=== PATIENT | male | born 1945 | race Caucasian/White ===

== ENCOUNTER 2018-08-03 09:45 | Outpatient (CLI) | payer OTHER, SELFPAY ==
[2018-08-03 11:36] LABS: CREATININE 1.11 mg/dL (0.70-1.30); Cholesterol 115 mg/dL (50-200); HDL Cholesterol 29 mg/dL (40-60); LDL CHOLESTEROL 63 mg/dL (<100); Triglyceride 167 mg/dL (30-150)
[2018-08-03 11:39] LABS: Hemoglobin A1C 7.1 % (4.5-6.2)
[2018-08-04 11:22] LABS: PSA, Screening <0.1 ng/ml (0-6.5)
== END 2018-08-03 10:05 ==
PROVIDERS: PCP Emergency Medicine; Visit Provider Emergency Medicine
DX: I10 Essential (primary) hypertension (principal); E78.5 Hyperlipidemia, unspecified; E11.9 Type 2 diabetes mellitus without complications; C61 Malignant neoplasm of prostate; R10.9 Unspecified abdominal pain
CPT/HCPCS: 36415; 80061; 83721; 84153; 82565; 83036

== ENCOUNTER → 2018-09-29 10:22 | Outpatient (BNVA) | payer OTHER, SELFPAY | PROVIDERS: PCP Emergency Medicine; Referring Provider Emergency Medicine; Visit Provider Physical Therapy Assistant | DX: R69 Illness, unspecified (principal) ==

== ENCOUNTER 2018-09-29 10:30 | Outpatient (CLI) | payer OTHER, SELFPAY | END 2018-09-29 10:50 | PROVIDERS: PCP Emergency Medicine; Visit Provider Physical Therapy Assistant | DX: L02.214 Cutaneous abscess of groin (principal) | CPT/HCPCS: 10060; 99213 ==

== ENCOUNTER 2018-10-07 12:47 | Outpatient (REF) | payer OTHER, SELFPAY | END 2018-10-07 13:07 | LOC: LBN 12:47 | PROVIDERS: PCP Emergency Medicine; Visit Provider Physical Therapy Assistant | DX: L02.214 Cutaneous abscess of groin (principal) | CPT/HCPCS: 87070; 87205 ==

== ENCOUNTER → 2018-10-13 10:08 | Outpatient (BNVA) | payer OTHER, SELFPAY | PROVIDERS: PCP Emergency Medicine; Referring Provider Emergency Medicine; Visit Provider Physical Therapy Assistant | DX: L02.214 Cutaneous abscess of groin (principal); Z48.89 Encounter for other specified surgical aftercare ==

== ENCOUNTER 2019-02-17 10:54 | Outpatient (CLI) | payer OTHER, SELFPAY | END 2019-02-17 11:14 | PROVIDERS: PCP Emergency Medicine; Visit Provider Emergency Medicine | DX: E11.9 Type 2 diabetes mellitus without complications (principal) | CPT/HCPCS: 36415; 83036 ==

== ENCOUNTER 2019-08-08 07:00 | Outpatient (CLI) | payer OTHER, SELFPAY ==
[2019-08-09 10:58] LABS: PSA, Diagnostic <0.1 ng/ml (0-6.5)
== END 2019-08-08 07:20 ==
PROVIDERS: PCP Emergency Medicine; Visit Provider Emergency Medicine
DX: E11.9 Type 2 diabetes mellitus without complications (principal); C61 Malignant neoplasm of prostate
CPT/HCPCS: 36415; 83036; 84153

== ENCOUNTER 2020-04-08 01:28 | Outpatient (CLI) | payer OTHER, SELFPAY ==
[2020-04-08 11:48] LABS: Anion Gap 10.7 mmol/L (3-11); BUN 21 mg/dL (7-18); CO2 26.3 mmol/L (21.0-32.0); CREATININE 1.31 mg/dL (0.70-1.30); Calcium 9.2 mg/dL (8.5-10.1); Chloride 103 mmol/L (98-107); Glucose 188 mg/dL (74-106); Potassium 4.2 mmol/L (3.5-5.1); Sodium 140 mmol/L (136-145)
== END 2020-04-08 01:48 ==
PROVIDERS: PCP Emergency Medicine; Visit Provider Emergency Medicine
DX: I10 Essential (primary) hypertension (principal); E11.9 Type 2 diabetes mellitus without complications
CPT/HCPCS: 36415; 80048; 83036

== ENCOUNTER 2020-06-28 02:28 | Outpatient (CLI) | payer OTHER, SELFPAY ==
[2020-06-28 10:06] LABS: HCT 42.1 % (40.0-50.0); MCH 28.9 pg (27.0-33.0); MCHC 33.3 % (32.0-36.0); MCV 86.8 fL (80-95); MPV 10.2 fL (8.0-11.0); Platelet Count 273 10^3/uL (130-400); RBC 4.85 10^6/uL (4.36-5.78); RDW 12.9 % (11.8-14.1); RDW-SD 40.6 fL; WBC 12.05 10^3/uL (4.4-10.8)
[2020-06-28 10:34] LABS: C-Reactive Protein 1.33 mg/dL (0.0-0.3)
[2020-06-28 13:18] LABS: ESR 22 mm/hr (1-20)
[2020-07-01 11:16] LABS: PSA, Diagnostic <0.1 ng/mL (0.0-6.5)
== END 2020-06-28 02:48 ==
PROVIDERS: PCP Emergency Medicine; Visit Provider Emergency Medicine
DX: R21 Rash and other nonspecific skin eruption (principal); C61 Malignant neoplasm of prostate
CPT/HCPCS: 36415; 85027; 85652; 84153; 86140

== ENCOUNTER 2020-07-10 17:05 | Outpatient (REF) | payer OTHER, SELFPAY ==
--- NOTE | 2020-07-10 16:00 | SKI_PTH ---
PATIENT: Rayshawn Martínez LOC: [facility] U#:[id number] AGE/SX: 75/M ROOM: RE07/10/[address]: Alcides Amezquita DO : 1945 BED: DIS: 07/10/2020 SPEC #: [id number] RECD: 07/11/20 12:26 STATUS: ANTON REStephany #: [id number] KWAKU: 07/10/20 16:[address]: Alcides Amezquita DEPT: Surgical Specimen RECD BY: Marisol Ayon Tissues: 1 - SKIN BIOPSY(SHAVE/PUNCH) Procedures: SKIN LEVEL 4 Comments: [id number]
[2020-07-10 22:10] LABS: Abs Immature Grans 0.15 10^3/uL (0.0-0.06); Absolute Basophil Count 0.11 10^3/uL (0.0-0.2); Absolute Eosinophil Count 0.51 10^3/uL (0.0-0.7); Absolute Lymphocyte Count 2.55 10^3/uL (1.2-3.4); Absolute Monocyte Count 0.91 10^3/uL (0.1-0.8); Absolute Neutrophil Count 6.27 10^3/uL (1.2-6.7); Bilirubin Negative (Negative); Blood Negative (Negative); Clarity Clear (Clear); Eosinophils % 4.9; Glucose Negative (Negative); HCT 43.2 % (40.0-50.0); HGB 14.6 g/dL (13.5-17.5); Immature Grans % 1.4; Ketones Negative (Negative); Leukocyte Esterase Negative (Negative); Lymphocytes % 24.3; MCH 28.7 pg (27.0-33.0); MCHC 33.8 % (32.0-36.0); MPV 10.4 fL (8.0-11.0); Monocytes % 8.7; Neutrophils % 59.7; Nitrite Negative (Negative); Nucleated RBC 0 %; Platelet Count 275 10^3/uL (130-400); RBC 5.08 10^6/uL (4.36-5.78); RDW 12.7 % (11.8-14.1); Urobilinogen 0.2 EU/dL (Up TO 0.2); pH 7.5 (5-8)
[2020-07-10 22:20] LABS: ALT 44 U/L (16-63); AST 21 U/L (15-37); Albumin 4.3 g/dL (3.4-5.0); Alkaline Phosphatase 84 U/L (46-116); Anion Gap 8.4 mmol/L (3-11); BUN 14 mg/dL (7-18); Bilirubin, Total 0.4 mg/dL (0.2-1.0); C-Reactive Protein 1.59 mg/dL (0.0-0.3); CO2 29.6 mmol/L (21.0-32.0); CREATININE 1.15 mg/dL (0.70-1.30); Calcium 9.9 mg/dL (8.5-10.1); Chloride 99 mmol/L (98-107); Glucose 214 mg/dL (74-106); Potassium 4.1 mmol/L (3.5-5.1); Sodium 137 mmol/L (136-145); Total Protein 7.9 g/dL (6.4-8.2)
== END 2020-07-10 17:25 ==
LOC: LBN 17:05
PROVIDERS: PCP Emergency Medicine; Visit Provider Emergency Medicine
DX: E11.9 Type 2 diabetes mellitus without complications (principal); R30.0 Dysuria; R21 Rash and other nonspecific skin eruption; L30.8 Other specified dermatitis; L98.6 Other infiltrative disorders of the skin and subcutaneous tissue
CPT/HCPCS: 80053; 81003; 83036; 85025; 86140; 88305

== ENCOUNTER → 2020-08-01 13:49 | Outpatient (BNVA) | payer OTHER, SELFPAY | PROVIDERS: PCP Emergency Medicine; Referring Provider Emergency Medicine; Visit Provider Psychiatry & Neurology Neurology | DX: G20 Parkinson's disease (principal); R41.3 Other amnesia; M54.5 Low back pain; E11.40 Type 2 diabetes mellitus with diabetic neuropathy, unspecified; Z79.84 Long term (current) use of oral hypoglycemic drugs; I10 Essential (primary) hypertension | CPT/HCPCS: 99205; 99215 ==

== ENCOUNTER → 2020-08-26 09:50 | Outpatient (BNVA) | payer OTHER, SELFPAY | PROVIDERS: PCP Emergency Medicine; Referring Provider Emergency Medicine; Visit Provider Psychiatry & Neurology Neurology | DX: G20 Parkinson's disease (principal); R41.3 Other amnesia; I10 Essential (primary) hypertension | CPT/HCPCS: 99213 ==

== ENCOUNTER → 2020-09-30 07:38 | Outpatient (BNVA) | payer OTHER, SELFPAY | PROVIDERS: PCP Emergency Medicine; Referring Provider Emergency Medicine; Visit Provider Psychiatry & Neurology Neurology | DX: R41.3 Other amnesia (principal); G20 Parkinson's disease; I10 Essential (primary) hypertension; E11.9 Type 2 diabetes mellitus without complications; Z79.84 Long term (current) use of oral hypoglycemic drugs | CPT/HCPCS: 99213; 99441 ==

== ENCOUNTER 2020-11-13 11:04 | Outpatient (REF) | payer OTHER, SELFPAY ==
[2020-11-13 14:11] LABS: Abs Immature Grans 0.05 10^3/uL (0.0-0.06); Absolute Basophil Count 0.09 10^3/uL (0.0-0.2); Absolute Eosinophil Count 0.49 10^3/uL (0.0-0.7); Absolute Lymphocyte Count 2.21 10^3/uL (1.2-3.4); Absolute Monocyte Count 0.71 10^3/uL (0.1-0.8); Absolute Neutrophil Count 5.33 10^3/uL (1.2-6.7); Eosinophils % 5.5; HGB 14.7 g/dL (13.5-17.5); Immature Grans % 0.6; Lymphocytes % 24.9; MCH 28.7 pg (27.0-33.0); MCHC 33.4 % (32.0-36.0); MCV 85.8 fL (80-95); MPV 10.7 fL (8.0-11.0); Nucleated RBC 0 %; Platelet Count 274 10^3/uL (130-400); RBC 5.13 10^6/uL (4.36-5.78); RDW 12.9 % (11.8-14.1); RDW-SD 40.3 fL; WBC 8.88 10^3/uL (4.4-10.8)
[2020-11-13 14:26] LABS: C-Reactive Protein 1.28 mg/dL (0.0-0.3)
[2020-11-13 14:58] LABS: Hemoglobin A1C 7.4 % (<5.7)
[2020-11-13 15:12] LABS: ESR 16 mm/hr (1-20)
== END 2020-11-13 11:24 ==
LOC: LBN 11:04
PROVIDERS: PCP Emergency Medicine; Visit Provider Emergency Medicine
DX: E11.9 Type 2 diabetes mellitus without complications (principal); R21 Rash and other nonspecific skin eruption
CPT/HCPCS: 85652; 83036; 85025; 86140

== ENCOUNTER 2021-03-14 14:52 | Outpatient (REF) | payer OTHER, SELFPAY ==
[2021-03-14 14:05] LABS: Hemoglobin A1C 7.7 % (<5.7)
[2021-03-14 14:22] LABS: Anion Gap 12.9 mmol/L (3-11); BUN 19 mg/dL (7-18); CO2 26.1 mmol/L (21.0-32.0); CREATININE 1.2 mg/dL (0.70-1.30); Calcium 9.5 mg/dL (8.5-10.1); Calculated LDL 46 mg/dL (<100); Chloride 102 mmol/L (98-107); Cholesterol 115 mg/dL (<200); Estimated GFR 58.71 (mL/min/1.73m2); Glucose 266 mg/dL (74-106); HDL Cholesterol 31 mg/dL (40-60); Potassium 4.1 mmol/L (3.5-5.1); Sodium 141 mmol/L (136-145); Triglyceride 192 mg/dL (<150)
[2021-03-14 15:06] LABS: COMMENT (LAB VIEW ONLY) 103.29 mg/dL; Microalb ug/mg Crea 14.2 ug/mg Cr
== END 2021-03-14 14:53 | disposition home or self-care (01) ==
LOC: LBN 14:52
PROVIDERS: PCP Emergency Medicine; Visit Provider Emergency Medicine
DX: I10 Essential (primary) hypertension (principal); E11.9 Type 2 diabetes mellitus without complications; E78.5 Hyperlipidemia, unspecified
CPT/HCPCS: 80048; 80061; 82043; 82570; 83036

== ENCOUNTER → 2021-03-31 12:16 | Outpatient (BNVA) | payer OTHER, SELFPAY | PROVIDERS: PCP Emergency Medicine; Referring Provider Emergency Medicine; Visit Provider Psychiatry & Neurology Neurology | DX: G20 Parkinson's disease (principal); R41.3 Other amnesia | CPT/HCPCS: 99213 ==

== ENCOUNTER 2021-09-04 10:48 | Outpatient (CLI) | payer MEDICARE, SELFPAY ==
[2021-09-04 13:02] LABS: COMMENT (LAB VIEW ONLY) 156.31 mg/dL; Microalb ug/mg Crea 10.9 ug/mg Cr
[2021-09-04 13:08] LABS: Anion Gap 11.8 mmol/L (3-11); BUN 23 mg/dL (7-18); CO2 27.2 mmol/L (21.0-32.0); CREATININE 1.1 mg/dL (0.70-1.30); Calcium 9.5 mg/dL (8.5-10.1); Calculated LDL 46 mg/dL (<100); Chloride 102 mmol/L (98-107); Cholesterol 116 mg/dL (<200); Glucose 202 mg/dL (74-106); HDL Cholesterol 33 mg/dL (40-60); Potassium 4.6 mmol/L (3.5-5.1); Sodium 141 mmol/L (136-145); Triglyceride 187 mg/dL (<150)
[2021-09-04 13:24] LABS: C-Reactive Protein 0.25 mg/dL (0.0-0.3)
[2021-09-04 13:47] LABS: Hemoglobin A1C 7.7 % (<5.7)
[2021-09-04 22:31] LABS: PSA, Diagnostic <0.1 ng/mL (0.0-6.5)
== END 2021-09-04 10:49 | disposition home or self-care (01) ==
LOC: LOS 10:48
PROVIDERS: PCP Emergency Medicine; Visit Provider Emergency Medicine
DX: E11.9 Type 2 diabetes mellitus without complications; I10 Essential (primary) hypertension; R21 Rash and other nonspecific skin eruption; C61 Malignant neoplasm of prostate
CPT/HCPCS: 36415; 80048; 80061; 82043; 82570; 83036; 84153; 86140

== ENCOUNTER → 2021-09-25 13:21 | Outpatient (BNVA) | payer MEDICARE, SELFPAY | PROVIDERS: PCP Emergency Medicine; Referring Provider Emergency Medicine; Visit Provider Surgery | DX: K40.90 Unilateral inguinal hernia, without obstruction or gangrene, not specified as recurrent (principal); I10 Essential (primary) hypertension; E11.9 Type 2 diabetes mellitus without complications; G20 Parkinson's disease; Z87.891 Personal history of nicotine dependence | CPT/HCPCS: 99214; 99243 ==

== ENCOUNTER → 2021-09-29 11:22 | Outpatient (BNVA) | payer MEDICARE, SELFPAY | PROVIDERS: PCP Emergency Medicine; Visit Provider Psychiatry & Neurology Neurology | DX: R41.3 Other amnesia (principal); G20 Parkinson's disease; R26.89 Other abnormalities of gait and mobility | CPT/HCPCS: 99214 ==

== ENCOUNTER 2021-11-13 01:13 | Outpatient (CLI) | payer MEDICARE, SELFPAY ==
--- NOTE | 2021-11-13 14:10 | DI.US_ITS ---
APPROVED REPORT EXAM: Comprehensive 2D, Doppler, and color-flow Echocardiogram Patient Location: Out-Patient Jailkeeper: Geno Taylor RDCS (AE) Indications: HTN, Preop Left inguinal hernia Other Information Study Quality: Adequate Conclusion Normal left ventricular wall thickness and chamber size. Estimated ejection fraction is 60 to 65%. Wall motion is normal Normal right ventricular size and systolic function Both atria are normal in size There is no structural or hemodynamically significant valvular disease Wall motion Left Ventricle The left ventricle is normal size. The left ventricular systolic function is normal. The left ventric ular ejection fraction is within the normal range. There is normal left ventricular wall thickness. T here is normal LV segmental wall motion. There is no ventricular septal defect visualized. LVEF is 60 -65%. Right Ventricle The right ventricle is normal size. The right ventricular systolic function is normal. Atria The left atrium size is normal. The right atrium size is normal. The interatrial septum is intact wit h no evidence for an atrial septal defect. Aortic Valve The aortic valve is normal in structure. Aortic valve is trileaflet. There is no aortic valvular sten osis. No aortic regurgitation is present. Mitral Valve The mitral valve is normal in structure. No evidence of mitral valve stenosis. Trace mitral regurgita tion. Tricuspid Valve The tricuspid valve is normal in structure. There is no tricuspid valve stenosis. Mild tricuspid regu rgitation. Pulmonic Valve The pulmonary valve is normal in structure. There is no pulmonic valvular stenosis. There is no pulmo ben valvular regurgitation. Great Vessels The aortic root is normal in size. The ascending aorta is normal in size. Aortic arch is normal in ca liber. IVC is normal in size and collapses >50% with inspiration. Pericardium There is no pericardial effusion. 2D Dimensions IVSD d PLAX 0.94 cm M: 0.6-1.2 LV Vol A2C d MOD 72.8 mL LVPW d PLAX 0.95 cm M: 0.6 - 1.2 LV Vol A4C d MOD 88.5 mL LVID d PLAX 4.02 cm M: 4.2 - 5.8 LA vol/ BSA A2C s A-L 21.6 mL/m2 LVDs 2.85 cm M: 2.5 - 4.0 LA vol/ BSA A4C s A-L 11.6 mL/m2 Ao Root d 3.19 cm M: 3.1 - 3.7 LA Vol/ BSA Biplane s A-L 17.4 mL/m2 RA Area A4C 11.48 cm2 LA Area A4C s MOD 9.47 cm2 RA Vol/ BSA A4C s A-L 13.6 mL/m2 LA Area A2C s MOD 14.16 cm2 Ao Asc Diam d 3.42 cm M: 2.6 - 3.4 LV EF A4C MOD 55.2 % LV EF Teichholz 55.4 % LV EF A2C MOD 55.4 % LVEF (Bautista's) 55.36 % M: 52 - 72 LV EF Biplane MOD 55.4 % LV Volume 63.24 mL M: 62 - 150 SV 44.83 mL LV Volume Index 35.52 mL/m2 M: 34 - 74 SV Index 25.20 mL/m2 LV Vol Biplane MOD 81.0 mL FS 28.40 % M-Mode TAPSE 1.72 cm (M/F) >1.7 LV Diastology MV E' medial 0.080 (>0.07 m/s) E/A Ratio 0.6 LV E/e MED 6.90 (<14) MV E Vmax 0.55 (0.4-1.3 m/s) MV E' lateral 0.078 (>0.1 m/s) MV A Vmax 1.00 (0.4-1.3 m/s) LV E/e LAT 7.05 (<14) MV E/A Ratio 0.54 MV E/E' medial 6.94 MV E/E' lateral 7.08 Aortic Valve LVOT Area 3.01 cm2 AoV Area Vmax 2.40 cm2 LVOT Vmax 1.02 m/s AoV Area/ BSA (Vmax) 1.35 cm2/m2 LVOT Mean Pb. 0.64 m/s LUCY Mean Pb. 2.28 cm2 LVOT Peak Grad 4.2 mmHg LUCY Mean Pb. Index 1.28 cm2/m2 LVOT Mean Grad 2.0 mmHg LVOT VTI 0.179 m LVOT Diam s 1.95 cm AoV Vmax 1.29 m/s Velocity Ratio 0.79 AoV Mean Pb. 0.85 m/s AoV Peak Grad 6.6 mmHg LVOT SV 53.98 mL AoV Mean Grad 3.4 mmHg AoV VTI 0.165 m AoV Area VTI 3.28 cm2 AoV Area/ BSA (VTI) 1.84 cm/m2 Mitral Valve MV DT 303 (160-240 msec) MV PHT 88 msec MV Area PHT 2.51 cm2 MV VTI 0.206 m MV Area VTI 2.62 (4.0-6.0 cm2) Pulmonary Valve PV Vmax 1.15 (0.5-1.5 m/s) RVOT Peak Gr. 2.28 mmHg PV Peak Grad 5.3 mmHg RVOT Mean Gr. 1.10 mmHg PV Mean Grad 2.6 mmHg RVOT VTI 0.117 m PV VTI 0.160 m RVOT Vmax 0.75 m/s Tricuspid Valve TR Peak Grad 27.1 mmHg TR Vmax 2.61 m/s RA Pressure 3.00 mmHg RVSP (TR) 30.2 mmHg
== END 2021-11-13 01:33 ==
PROVIDERS: PCP Family Medicine; Visit Provider Surgery
DX: K40.90 Unilateral inguinal hernia, without obstruction or gangrene, not specified as recurrent; Z01.810 Encounter for preprocedural cardiovascular examination
CPT/HCPCS: 93306

== ENCOUNTER → 2021-11-17 09:58 | Outpatient (BNVA) | payer MEDICARE, SELFPAY | PROVIDERS: PCP Family Medicine; Visit Provider Surgery | DX: K46.9 Unspecified abdominal hernia without obstruction or gangrene (principal) | CPT/HCPCS: 99212; 99213 ==

== ENCOUNTER → 2021-12-29 10:27 | Outpatient (BNVA) | payer MEDICARE, SELFPAY | PROVIDERS: PCP Family Medicine; Visit Provider Psychiatry & Neurology Neurology | DX: R41.3 Other amnesia (principal); F43.9 Reaction to severe stress, unspecified; Z63.6 Dependent relative needing care at home; G20 Parkinson's disease | CPT/HCPCS: 99214 ==

== ENCOUNTER 2022-01-07 02:24 | Outpatient (CLI) | payer MEDICARE, SELFPAY ==
[2022-01-07 13:34] LABS: HCT 43.1 % (40.0-50.0); HGB 14.1 g/dL (13.5-17.5); MCH 28.7 pg (27.0-33.0); MCHC 32.7 % (32.0-36.0); MCV 87.8 fL (80-95); MPV 9.7 fL (8.0-11.0); Platelet Count 297 10^3/uL (130-400); RBC 4.91 10^6/uL (4.36-5.78); RDW 12.9 % (11.8-14.1); RDW-SD 41.4 fL; WBC 9.95 10^3/uL (4.4-10.8)
[2022-01-07 13:46] LABS: Hemoglobin A1C 7.1 % (<5.7)
[2022-01-07 14:17] LABS: Anion Gap 7.3 mmol/L (3-11); BUN 17 mg/dL (7-18); CO2 29.7 mmol/L (21.0-32.0); CREATININE 0.9 mg/dL (0.70-1.30); Calcium 9.7 mg/dL (8.5-10.1); Chloride 102 mmol/L (98-107); Glucose 141 mg/dL (74-106); Potassium 4.3 mmol/L (3.5-5.1); Sodium 139 mmol/L (136-145)
[2022-01-07 14:21] LABS: Iron 48 ug/dL (65-175); Total Iron Binding Capacity 295 ug/dL (250-450); Transferrin Sat 16 % (20-55)
[2022-01-07 14:48] LABS: Ferritin 63 ng/mL (26-388); TSH (W/Ref FT4) 1.21 uIU/mL (0.36-3.74); Vitamin B12 211 pg/mL (193-986)
[2022-01-10 15:59] LABS: Thiamine (Vitamin B1), WB 127 nmol/L (70-180)
== END 2022-01-07 02:25 | disposition home or self-care (01) ==
LOC: LBO 02:24
PROVIDERS: PCP Family Medicine; Visit Provider Psychiatry & Neurology Neurology
DX: G31.84 Mild cognitive impairment of uncertain or unknown etiology (principal); G62.9 Polyneuropathy, unspecified; E11.9 Type 2 diabetes mellitus without complications; R53.83 Other fatigue
CPT/HCPCS: 36415; 80048; 85027; 82607; 82728; 83036; 83540; 83550; 84425; 84443

== ENCOUNTER → 2022-02-10 10:33 | Outpatient (BNVA) | payer MEDICARE, SELFPAY | PROVIDERS: PCP Family Medicine; Visit Provider Psychiatry & Neurology Neurology | DX: R41.3 Other amnesia (principal); F43.9 Reaction to severe stress, unspecified; I10 Essential (primary) hypertension; E11.42 Type 2 diabetes mellitus with diabetic polyneuropathy; G20 Parkinson's disease | CPT/HCPCS: 99215 ==

== ENCOUNTER → 2022-03-17 11:22 | Outpatient (BNVA) | payer MEDICARE, SELFPAY | PROVIDERS: PCP Family Medicine; Referring Provider Family Medicine; Visit Provider Psychiatry & Neurology Neurology | DX: G20 Parkinson's disease (principal); R41.3 Other amnesia | CPT/HCPCS: 99214 ==

== ENCOUNTER → 2022-06-15 11:20 | Outpatient (BNVA) | payer MEDICARE, SELFPAY | PROVIDERS: PCP Family Medicine; Referring Provider Family Medicine; Visit Provider Psychiatry & Neurology Neurology | DX: G20 Parkinson's disease (principal); R41.3 Other amnesia | CPT/HCPCS: 99213 ==

== ENCOUNTER 2022-09-09 13:50 | Outpatient (REF) | payer MEDICARE, SELFPAY ==
[2022-09-09 13:32] LABS: Microalb ug/mg Crea 12.7 ug/mg Cr
== END 2022-09-09 13:51 | disposition home or self-care (01) ==
LOC: LBN 13:50
PROVIDERS: PCP Family Medicine; Visit Provider Family Medicine
DX: I10 Essential (primary) hypertension (principal); E78.5 Hyperlipidemia, unspecified; E11.40 Type 2 diabetes mellitus with diabetic neuropathy, unspecified
CPT/HCPCS: 82043; 82570

== ENCOUNTER → 2022-09-14 09:59 | Outpatient (BNVA) | payer MEDICARE, SELFPAY | PROVIDERS: PCP Family Medicine; Referring Provider Family Medicine; Visit Provider Psychiatry & Neurology Neurology | DX: G20 Parkinson's disease (principal); K59.00 Constipation, unspecified; Z63.6 Dependent relative needing care at home; G31.84 Mild cognitive impairment of uncertain or unknown etiology | CPT/HCPCS: 99214 ==

== ENCOUNTER → 2022-12-23 13:14 | Outpatient (BNVA) | payer MEDICARE, SELFPAY | PROVIDERS: PCP Family Medicine; Visit Provider Psychiatry & Neurology Neurology | DX: M54.50 Low back pain, unspecified (principal); K59.00 Constipation, unspecified; Z63.6 Dependent relative needing care at home; I10 Essential (primary) hypertension; E11.42 Type 2 diabetes mellitus with diabetic polyneuropathy; G20 Parkinson's disease; R41.3 Other amnesia | CPT/HCPCS: 99214 ==

== ENCOUNTER 2023-01-13 01:03 | Outpatient (CLI) | payer MEDICARE, SELFPAY ==
--- NOTE | 2023-01-13 06:45 | DI.MRI_ITS ---
Exam(s) MR LUMBAR SPINE WO EXAM: MR LUMBAR SPINE WO CLINICAL HISTORY: 2 mos back pain, no improvement with PT,m54.5. TECHNIQUE: Multiplanar multisequence MRI of the Lumbar spine was performed. COMPARISON: CR LUMBAR SPINE COMPLETE from 09/20/2009 CT ABD PELVIS WITH CONTRAST from 08/07/2016 FINDINGS: Bones: The last intervertebral disc space is designated the L5/S1 level for the numbering purpose of this examination. Endplate osteophytes are seen throughout the lumbar spine. There is a right conv ex curvature of the thoracolumbar spine. There are mild degenerative endplate signal changes at L5-S 1. Cord: The conus tip ends at the T12-L1 level. It is of normal size and signal intensity. T12-L1: No disc herniations or bulges are present. No central spinal canal or neural foraminal stenos is. L1-2: No disc herniations or bulges are present. No central spinal canal or right neural foraminal st enosis. There are prominent osteophytes on the left causing mild left neural foraminal stenosis. L2-3: No disc herniations or bulges are present. No central spinal canal or right neural foraminal st enosis. There are prominent osteophytes on the left side causing mild left neural foraminal narrowin g. L3-4: There is a mild diffuse disc bulge. There are degenerative changes of the facets. There is mi ld narrowing of the central spinal canal. There is mild right neural foraminal stenosis and moderate left neural foraminal stenosis. L4-5: There is a diffuse disc bulge and prominent osteophytes, right greater than left. Facet arthro josue is seen. No significant central spinal canal stenosis is present. There is marked right neura l foraminal stenosis and mild left neural foraminal stenosis. L5-S1: No disc herniations or bulges are present. There is marked right neural foraminal stenosis. N o significant central spinal canal or left neural foraminal stenosis.There are degenerative changes o f the facets. There prominent osteophyte seen on the right side. Soft tissues: The visualized SI joints and sacrum are well maintained. The paraspinal soft tissues ar e unremarkable. IMPRESSION: 1. Multilevel degenerative changes throughout the lumbar spine as described above. 2. Findings predominantly result in bilateral neural foraminal stenosis as described above. The find ings are most marked on the right at L4-5 and L5-S1. DATA REPOSITORY:
== END 2023-01-13 01:23 ==
PROVIDERS: PCP Family Medicine; Visit Provider Family Medicine
DX: M54.59 Other low back pain (principal); M51.36 Other intervertebral disc degeneration, lumbar region; M47.817 Spondylosis without myelopathy or radiculopathy, lumbosacral region; M99.53 Intervertebral disc stenosis of neural canal of lumbar region
CPT/HCPCS: 72148

== ENCOUNTER → 2023-03-24 12:51 | Outpatient (BNVA) | payer MEDICARE, SELFPAY | PROVIDERS: PCP Family Medicine; Referring Provider Family Medicine; Visit Provider Psychiatry & Neurology Neurology | DX: G20 Parkinson's disease; K59.00 Constipation, unspecified; Z63.6 Dependent relative needing care at home; G31.84 Mild cognitive impairment of uncertain or unknown etiology; I10 Essential (primary) hypertension; E11.9 Type 2 diabetes mellitus without complications | CPT/HCPCS: 99214 ==

== ENCOUNTER 2023-07-07 09:24 | Outpatient (CLI) | payer MEDICARE, SELFPAY ==
--- NOTE | 2023-07-07 06:00 | DI.RAD_ITS ---
Exam(s) XR PAIN CLINIC LUMBAR SP 2V EXAM: XR PAIN CLINIC LUMBAR SP 2V CLINICAL HISTORY: Dx: Lumbar Spondylosis TECHNIQUE: 2D and realtime digital imaging was performed. CONTRAST MATERIAL: Refer to procedure report. COMPARISON: No exams were available for comparison FINDINGS: Fluoroscopy was provided for Dr. Herrera during the performance of a lumbar facet injection. Please re shaneka to the procedure report for complete details. Ka,r=8.47 mGy IMPRESSION:
[2023-07-07 09:26] VITALS: BP 125/81; PULSE 101; RESP 20; TEMP 36.6; O2SAT 97
[2023-07-07] MEDS: Omnipaque 240 MG/ML 50 ML BTL IJ (10:04)
[2023-07-07] MEDS: Bupivacaine 0.5% Pres-Free 10 ML VIAL IJ (10:05)
[2023-07-07 10:12] VITALS: BP 132/75; PULSE 97; RESP 20; O2SAT 99
--- NOTE | 2023-07-07 14:28 | PDOC.PAIN_ITS ---
Date of service: 07/07/23 Time of Service: 14:28 Pain Managment Procedure Note Procedure Note Procedure Note: PROCEDURE NOTE Right Lumbar Medial Branch Blocks Date of Service: July 07, 2023 Patient: Rayshawn Martínez Provider: Dung Herrera DO, MPH Rayshawn Martínez has been referred to the [facility] for lumbar medial branch blocks. 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 His symptoms are the same today as they were at that time. Jg was interviewed and the medical records were reviewed. There were no medical, pharmacologic, radiographic or other structural contraindications to attempting fluoroscopically guided local anesthetic lumbar medial branch blocks. Risks and potential side effects were discussed. I also discussed the potential benefit(s) of the procedure with Rayshawn, and voiced concerns were addressed. After Rayshawn was completely informed about the procedure, the printed consent form was signed. A standard time-out procedure was performed. Rayshawn was placed in the prone position on the fluoroscopy table. Automated blood pressure cuff and pulse oximeter were applied. The skin entry points for approaching the anatomic target points of the segmental medial branches of right L3,L4,L5 were identified with fluoroscopy and marked. The skin at the target site area was thoroughly prepared with Chlorhexadine. The skin was then draped. Next, a 25 gauge 3.5 spinal needle was placed under fluoroscopic guidance down on to the target point (the articular pillar) for each respective segmental medial branch. Position was confirmed in A/P and lateral views. Aspiration revealed no blood or clear fluid. Next, 0.25ml of omnipaque 240 was injected at each level. No contrast following a vascular or neural pattern was visualized under continuous fluoroscopy. Next, 0.25 ml of preservative-free 0.5% bupivicaine was injected at each level. There was no unusual discomfort expressed by Rayshawn. The needles were withdrawn without difficulty. (49 mls of Omnipaque was wasted) Rayshawn was observed and was without hemodynamic, neurologic, or allergic reactions.? Fluoroscopic images were digitally archived. Provacative testing using the Modified Guadarrama's facet loading test- Right Side Directly before the block VAS (0-10) = 7/10 Five minutes after the block VAS (0-10) = 5/10 Percentage relief obtained with this diagnostic block 40% Any improved physical functioning directly after the blocks? Able to walk much easier. Follow up plans and appointments were discussed with Rayshawn. Rayshawn was instru cted to keep careful note of how the usual pain was modified by these injections. Specifically, to keep a pain diary for the next 4 hours using a numeric pain scale of 0-10 and report these results. Post procedure instruction was given as documented in the nursing documentation and having met discharge criteria, the patient was [facility]. Based on the medial branches blocked today, if they patient has adequate relief and we are able to proceed to radiofrequency ablation, the treatment should result in the denervation of the right L4-L5 and L5-S1 facet joints. We would expect to denervate a total of 2 facets during the radiofrequency ablation. COMMENTS: No apparent complications. Post-procedure pain: VAS= 5/10 Rayshawn will call back with 0-4 hour post-procedure pain scores. I personally performed the entire procedure. DUNG HERRERA DO, MPH ABPM&R-subspecialty board certification in Pain Medicine [facility] [facility]
== END 2023-07-07 09:25 | disposition home or self-care (01) ==
LOC: PC 09:24
PROVIDERS: PCP Family Medicine; Visit Provider Preventive Medicine Occupational Medicine
DX: M54.50 Low back pain, unspecified (principal); M47.816 Spondylosis without myelopathy or radiculopathy, lumbar region
CPT/HCPCS: 64493; 64494; 72100; Q9967

== ENCOUNTER → 2023-07-28 10:47 | Outpatient (BNVA) | payer MEDICARE, SELFPAY | PROVIDERS: PCP Family Medicine; Referring Provider Family Medicine; Visit Provider Psychiatry & Neurology Neurology | DX: K59.00 Constipation, unspecified (principal); Z63.6 Dependent relative needing care at home; G31.84 Mild cognitive impairment of uncertain or unknown etiology; I10 Essential (primary) hypertension; E11.9 Type 2 diabetes mellitus without complications; G20.A1 Parkinson's disease without dyskinesia, without mention of fluctuations | CPT/HCPCS: 99214 ==

== ENCOUNTER 2023-08-18 14:46 | Outpatient (CLI) | payer MEDICARE, SELFPAY ==
--- NOTE | 2023-08-18 06:00 | DI.RAD_ITS ---
Exam(s) XR PAIN CLINIC LUMBAR SP 2V EXAM: XR PAIN CLINIC LUMBAR SP 2V CLINICAL HISTORY: Dx: Lumbar Spondylosis. TECHNIQUE: Fluoroscopy was provided for the referring physician for guidance with performing pain cl inic injection procedure. COMPARISON: No exams were available for comparison FINDINGS: Please see procedure note for details. Fluoro time: 38.2 seconds RADIATION DOSE DELIVERED: Kar=7.8 mGy
[2023-08-18 14:58] VITALS: BP 133/74; PULSE 84; RESP 20; TEMP 36.9; O2SAT 96
--- NOTE | 2023-08-18 15:40 | PDOC.PAIN ---
Date of service: 08/18/23 Time of Service: 15:40 Pain Managment Procedure Note Procedure Note Procedure Note: PROCEDURE NOTE Lumbar Medial Branch Blocks Date of Service: August 18, 2023 Patient: Rayshawn Martínez Provider: Dung Herrera DO, MPH Rayshawn Martínez has been referred to the [facility] for lumbar medial branch blocks. Pre-operative diagnosis: Lumbar Spondylosis without Myelopathy Post-operative diagnosis: Same Pre-procedure pain: VAS= 6/10 COMMENTS: He did well with the first LMBB on 07/07/23. He symptoms returned. Jg was interviewed and the medical records were reviewed. There were no medical, pharmacologic, radiographic or other structural contraindications to attempting fluoroscopically guided local anesthetic lumbar medial branch blocks. Risks and potential side effects were discussed. I also discussed the potential benefit(s) of the procedure with Rayshawn, and voiced concerns were addressed. After Rayshawn was completely informed about the procedure, the printed consent form was signed. A standard time-out procedure was performed. Rayshawn was placed in the prone position on the fluoroscopy table. Automated blood pressure cuff and pulse oximeter were applied. The skin entry points for approaching the anatomic target points of the segmental medial branches of right L3,L4,L5 were identified with fluoroscopy and marked. The skin at the target site area was thoroughly prepared with Chlorhexadine. The skin was then draped. Next, a 25 gauge 3.5 spinal needle was placed under fluoroscopic guidance down on to the target point (the articular pillar) for each respective segmental medial branch. Position was confirmed in A/P and lateral views. Aspiration revealed no blood or clear fluid. Next, 0.25ml of omnipaque 240 was injected at each level. No contrast following a vascular or neural pattern was visualized under continuous fluoroscopy. Next, 0.25 ml of preservative-free 0.5% bupivicaine was injected at each level. There was no unusual discomfort expressed by Rayshawn. The needles were withdrawn without difficulty. (49 mls of Omnipaque was wasted) Rayshawn was observed and was without hemodynamic, neurologic, or allergic reactions.? Fluoroscopic images were digitally archived. Provacative testing using the Modified Guadarrama's facet loading test- Right Side Directly before the block VAS (0-10) = 6/10 Five minutes after the block VAS (0-10) = 6/10 Percentage relief obtained with this diagnostic block 0% Any improved physical functioning directly after the blocks? Able to move the low back a bit better. Follow up plans and appointments were discussed with Rayshawn. Rayshawn was instructed to keep careful note of how the usual pain was modified by these injections. Specifically, to keep a pain diary for the next 4 hours using a numeric pain scale of 0-10 and report these results. Post procedure instruction was given as documented in the nursing documentation and having met discharge criteria, the patient was [facility] from the [facility]. Based on the medial branches blocked today, if they patient has adequate relief and we are able to proceed to radiofrequency ablation, the treatment should result in the denervation of the right L4-L5 and L5-S1 facet joints. We would expect to denervate a total of 2 facets during the radiofrequency ablation. COMMENTS: No apparent complications. Post-procedure pain: VAS= 6/10 Rayshawn will call back with 0-4 hour post-procedure pain scores. I personally performed the entire procedure. DUNG HERRERA DO, MPH ABPM&R-subspecialty board certification in Pain Medicine [facility] [facility]
[2023-08-18 15:46] VITALS: BP 139/79; PULSE 93; RESP 17; O2SAT 95
[2023-08-18] MEDS: Bupivacaine 0.5% Pres-Free 10 ML VIAL IJ (15:48)
[2023-08-18] MEDS: Omnipaque 240 MG/ML 50 ML BTL IJ (15:48)
== END 2023-08-18 14:47 | disposition home or self-care (01) ==
LOC: PC 14:46
PROVIDERS: PCP Family Medicine; Visit Provider Preventive Medicine Occupational Medicine
DX: M54.50 Low back pain, unspecified (principal); M47.816 Spondylosis without myelopathy or radiculopathy, lumbar region
CPT/HCPCS: 00123; 64493; 64494; 72100; Q9967

== ENCOUNTER 2023-09-22 02:45 | Outpatient (CLI) | payer MEDICARE, SELFPAY ==
[2023-09-22 13:08] LABS: Hemoglobin A1C 6.2 % (<5.7)
[2023-09-22 13:47] LABS: ALT 22 U/L (16-63); AST 12 U/L (15-37); Albumin 3.9 g/dL (3.4-5.0); Alkaline Phosphatase 94 U/L (46-116); Anion Gap 10.3 mmol/L (3-11); BUN 16 mg/dL (7-18); Bilirubin, Total 0.5 mg/dL (0.2-1.0); CO2 29.7 mmol/L (21.0-32.0); Calcium 9.9 mg/dL (8.5-10.1); Chloride 101 mmol/L (98-107); Estimated GFR 76.08 (mL/min/1.73m2); Glucose 180 mg/dL (74-106); Potassium 3.8 mmol/L (3.5-5.1); Sodium 141 mmol/L (136-145)
[2023-09-22 14:16] LABS: COMMENT (LAB VIEW ONLY) 537.01 mg/dL; Microalb ug/mg Crea 18.4 ug/mg Cr
== END 2023-09-22 02:46 | disposition home or self-care (01) ==
LOC: LBO 02:45
PROVIDERS: PCP Family Medicine; Visit Provider Family Medicine
DX: E11.40 Type 2 diabetes mellitus with diabetic neuropathy, unspecified (principal)
CPT/HCPCS: 36415; 80053; 82043; 82570; 83036

== ENCOUNTER 2023-10-21 13:07 | Emergency (ER) | payer MEDICARE, SELFPAY ==
[2023-10-21] VITALS (42 sets, daily range): BP systolic 127–161; BP diastolic 61–80; PULSE 61–128; RESP 12–20; TEMP 36.9; O2SAT 97
--- NOTE | 2023-10-21 13:00 | RT.EKG_ITS ---
APPROVED REPORT Exam: Resting ECG Reason for Exam: Chest pain Patient Location: E HR:93 bpm ECG Measurements Heart Rate 93 AXIS DC 153 P 81 QRSd 106 QRS 70 QT 390 T 48 QTc 486 Conclusion Sinus rhythm...normal P axis, V-rate 60- 99 Inferior infarct, old...Q >35mS, II III aVF normal sinus rhythm at a rate of 93 with interventricular conduction delay and a QRS of 106 ms. QTc within normal limits. Normal axis. No ST segment abnormalities. No T wave inversions. No prior fo r comparison.
--- NOTE | 2023-10-21 13:28 | W.ED.GENAD ---
HPI General Stated Complaint: Chest Pain EVE: 3 Date/Time Provider Initiated Documentation: 10/21/23 13:28. HPI Narrative: [facility] This is an overall well-appearing normothermic and not tachycardic 78-year-old male with chest pain throughout the night last night concerning for multiple etiologies. Patient is relatively high risk for ACS given his diabetes hypertension and hyperlipidemia however he has no exertional component to his pain no diaphoresis and his pain is not typical of angina. No tearing quality to suggest aortic dissection. No cough no fevers to suggest pneumonia. No trauma to suggest pneumothorax. Not a dialysis patient nor hypotensive so I doubt tamponade. No history of emesis to suggest increased risk for esophageal rupture. No rash to chest to suggest zoster. No pain out of proportion to suggest necrotizing soft tissue infection. 2:40 PM Patient has resolved chest pain. His labs show no DANAY. He does have hyperglycemia but no anion gap normal bicarbonate??not consistent with DKA. Negative initial troponin. Very mild hypomagnesemia for which patient will receive oral repletion. CBC with mild normocytic anemia. No leukocytosis. No thrombocytopenia. Patient was found to have a left 4 cm apical opacification for which radiology advised a CT scan as focal pneumonia could not be excluded. Patient's daughter reports that he has also been intermittently confused. This is a could certainly cause his chest pain. Will complete a CT scan with and without contrast based on results of D-dimer. 3:15 PM Patient had a negative D-dimer when adjusted for age. As result we will obtain a dry CT scan to assess for mass. Anticipate touching with oncology based on results of CT scan. I updated the patient and daughter on abnormal chest x-ray. Given intermittent hoarse voice and pleuritic chest pain this certainly could all be explained by the patient's mass. 3:45 PM Patient did have episodes of tachycardia with rates into the 150s. It was unclear whether or not this is artifact. Will repeat an ECG. 3:54 PM Repeat ECG showing narrow complex normal sinus rhythm under 75. Normal axis. Low voltage similar to prior. MO and QTc within normal limits. Compared to prior patient does have mild new upsloping ST segment elevation in lead II. T wave flattening in aVL similar to prior. Mild upsloping ST segment elevation in lead V5 and V6. I spoke with the transfer center to touch base with cardiology at [facility]. 4:30 PM I spoke with Baljit Banks from cardiology at [facility]. He had a low suspicion for ACS given the patient's presentation and left upper lobe mass which on CT scan was noted to be 4 cm spiculated and extending nearly to the pleura. He advised holding heparin but trending of troponin and repeating an ECG. 4:40 PM I spoke with Dr. Enrique Smith from oncology who advised biopsy with interventional radiology. I spoke to transfer center at [facility] to speak w/IR. 4:50 [address] spoke with Dr[address] Finnegan from interventional radiology. He requested that a fax to be sent to him including HPI along with a medication list and an order for lung biopsy. Fax number is [phone]. Will fax this note along with a medication list. Health insulation power unit tender Margareth fax this note along with my order: Order: Please complete left upper lobe IR guided lung biopsy based on 4 cm left upper lobe spiculated mass found on CT scan. Ordering provider: Dr. Enrique Salomon, [facility] I spoke with Dr. Mitchell. 4:56 PM I updated the patient's daughter. Will plan on discharging home assuming repeat troponin is negative. Repeat ECG showing narrow complex normal sinus rhythm at a rate of 82. Intervals within normal limits. Significant artifact. No changes to mildly upsloping ST segment in lead II. No acute injury pattern. I have asked health insulation power unit tender Margareth to have the patient seen in the next 5 days by his primary care provider to best coordinate care given his new left lung mass. I gave patient's several oxycodone tablets to use as needed for breakthrough pain. Will hold NSAIDs given aspirin use and age. 5:15 PM Repeat troponin negative. Patient discharged with empiric trial of expectant outpatient management. Chronic conditions affecting the care of the patient: Parkinson's disease, mild cognitive impairment, hyperlipidemia, diabetes, hyperlipidemia History obtained from an outside historian: Patient's daughter External record review: [facility] EMR [Diagnostic interpretations performed by me: Per my independent interpretation chest x-ray shows: Left apical mass Independent interpretation EKG shows: normal sinus rhythm at a rate of 93 with interventricular conduction delay and a QRS of 106 ms. QTc within normal limits. Normal axis. No ST segment abnormalities. No T wave inversions. No prior for comparison. Medications: Aspirin Social determinants of health affecting disposition: N/A Management discussed with: Cardiology and oncology at [facility] Treatment/interventions considered: Hospitalization but deferred Response to therapies provided: N/A HPI This is an 78-year-old male with mild cognitive impairment and Parkinson's disease type 2 diabetes hypertension hyperlipidemia arrived to the emergency department via private vehicle in the setting of chest pain. Patient reported chest pain began last night kept him awake for most of the night. It is on the left side of his chest. It hurts more when he takes a deep breath in. He has not had any diaphoresis. He has not had any syncope. He denies any recent falls. He has chronic low back pain. He says it is left-sided and nonradiating. Is not worse with movement. She never had a PE nor DVT. He send denies any fevers and shortness of breath. He has no history of coronary artery disease. He denies routine tobacco, ethanol, and illicits. He takes care of his demented . I spoke with patient's daughter Doris who calls twice daily to check in the patient. Patient reportedly had dull, tightness in his left chest. Also slept abnormally late. He has also intermittently had a hoarse voice for the past several weeks. Just started low dose sertraline. Patient's daughter can be reached by phone: Doris [phone] Exam General: Well-appearing in no acute distress speaking in complete sentences. Head: Normocephalic, atraumatic. Eye: Extraocular eye movements intact. No conjunctival injection. No scleral icterus. Ear, nose, mouth, throat: Grossly normal inspection. Normal voice, handling secretions normally. Neck: Trachea midline. Cardiovascular: Well-perfused distal extremities. Respiratory: Nonlabored respiration. Gastrointestinal: Nondistended abdomen. Musculoskeletal: No edema. Moving all 4 extremities spontaneously. Skin: Normal for age and race, grossly normal temperature and turgor. No acute rash. Neurologic: Alert and appropriate, no apparent acute deficits. Psychiatric: Mood and manner are appropriate. Grooming and personal hygiene are appropriate. Related Data Home Medications Medication Instructions Recorded Confirmed aspirin 81 mg tablet,delayed 81 mg PO DAILY 03/30/13 10/21/23 release (Aspir-) magnesium chloride 64 mg 64 mg PO DAILY 03/30/13 10/21/23 (magnesium chloride) tablet,delayed release (Mag 64) blood-glucose meter ([employer] #1 ea 08/31/18 10/07/23 Ultra2 Meter kit) simvastatin 20 mg tablet 20 mg PO DAILY #90 tabs 01/11/23 10/21/23 amlodipine 5 mg tablet 5 mg PO DAILY #90 tabs 01/19/23 10/21/23 losartan 100 mg tablet 100 mg PO DAILY #90 tabs 02/22/23 10/21/23 blood sugar diagnostic #90 strips 03/12/23 10/07/23 lancets #90 ea 03/23/23 10/07/23 meloxicam 7.5 mg tablet 7.5 mg PO DAILY #90 tabs 06/02/23 10/21/23 metformin 500 mg tablet 1,000 mg (2 x 500 mg) PO BID #360 07/13/23 10/21/23 tabs glipizide 5 mg tablet 5 mg PO BID #180 tabs 07/15/23 10/21/23 betamethasone valerate 0.1 % 1 applic topical DAILY PRN skin 09/24/23 10/21/23 topical cream irritation #45 grams sertraline 25 mg tablet 25 mg PO DAILY #30 tabs 09/24/23 10/21/23 omeprazole 10 mg capsule,delayed 10 mg PO DAILY #90 caps 10/04/23 10/21/23 release lidocaine 5 % topical patch 1 patch topical DAILY #15 ea 10/21/23 (Lidoderm) Previous Rx's Medication Instructions Recorded blood-glucose meter ([employer] #1 ea 08/31/18 Ultra2 Meter kit) simvastatin 20 mg tablet 20 mg PO DAILY #90 tabs 01/11/23 amlodipine 5 mg tablet 5 mg PO DAILY #90 tabs 01/19/23 losartan 100 mg tablet 100 mg PO DAILY #90 tabs 02/22/23 blood sugar diagnostic #90 strips 03/12/23 lancets #90 ea 03/23/23 meloxicam 7.5 mg tablet 7.5 mg PO DAILY #90 tabs 06/02/23 metformin 500 mg tablet 1,000 mg (2 x 500 mg) PO BID #360 07/13/23 tabs glipizide 5 mg tablet 5 mg PO BID #180 tabs 07/15/23 betamethasone valerate 0.1 % 1 applic topical DAILY PRN skin 09/24/23 topical cream irritation #45 grams sertraline 25 mg tablet 25 mg PO DAILY #30 tabs 09/24/23 omeprazole 10 mg capsule,delayed 10 mg PO DAILY #90 caps 10/04/23 release lidocaine 5 % topical patch 1 patch topical DAILY #15 ea 10/21/23 (Lidoderm) Allergies Allergy/AdvReac Type Severity Reaction Status Date / Time cimetidine Allergy Mild Verified 10/21/23 13:21 Sulfa (Sulfonamide Allergy Mild Rash on Verified 10/21/23 13:21 Antibiotics) palms of hands ranitidine AdvReac Mild DIARRHEA Verified 10/21/23 13:21 PFSH All Active Problems Mass of upper lobe of left lung (Acute) Sacroiliac joint dysfunction of right side (Acute) Lumbosacral spondylosis without myelopathy (Acute) Nail dystrophy (Acute) Essential hypertension (Chronic 07/31/13) Gastroesophageal reflux disease with esophagitis (Chronic) + EGD Hyperlipidemia (Chronic) Low back pain (Chronic) leg length inquality; worse with prolonged walking. Constipation (Chronic) Parkinson disease (Chronic) As of 12/2021-followed by neurology at [facility], currently off Sinemet Mild cognitive impairment (Chronic) 12/2021-Followed by neurology Type 2 diabetes mellitus with diabetic neuropathy, unspecified (Chronic) Caregiver burden (Acute) Medical History Hx of malignant neoplasm of prostate (2004) Former smoker Left groin hernia under observation, no surgery. Tubular adenoma of colon (11/13/16) colonoscopy in 2017. Due to other health conditions patient prefers no further screening. Gout Surgical History S/P prostatectomy H/O cataract extraction (~09/12/19) [facility] 09/12/19 (OS) 09/26/19 (OD) Colonoscopy - IV Sedation (11/13/16) Family History Mother , AGE 85 Essential hypertension Diabetes Father , AGE 89 No problems noted. 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 Pets and animals: No Sexually active: No Do you think of yourself as: straight/heterosexual Current gender identity: male What is your relationship status?: How often do you talk on the phone with friends or family?: three or more times per week How often do you get together with friends or relatives?: once per week How often do you attend presybeterian or religion services?: 1-3 times per year Panel score (0-1 are the most socially isolated patients): 2 What type of physical activity do you participate in: walking and weight lifting Duration: 30-45 minutes/day Frequency: 1-2 times per week Lela/Nondenominational: Christian Special lela needs: No Seatbelt use: always Helmet use: Yes Helmet use: always Drive intox or ride w/intox armor reconnaissance vehicle driver: No Do you feel safe in your relationship?: Yes Victim of physical abuse: No Victim of emotional abuse: No Victim of sexual abuse: No Would you like helpful sources: No Course Vital Signs Vital signs: Vital Signs Pulse 95 H 10/21/23 13:16 Respiratory Rate 18 10/21/23 13:16 Blood Pressure 155/80 H 10/21/23 13:16 Pulse Oximetry 97 10/21/23 13:16 Temperature 36.9 C 10/21/23 13:24 Pulse 95 H 10/21/23 13:16 Respiratory Rate 18 10/21/23 13:16 Respiratory Effort Normal 10/21/23 13:21 Blood Pressure 155/80 H 10/21/23 13:16 Blood Pressure Position Supine 10/21/23 13:16 Pulse Oximetry 97 10/21/23 13:16 Oxygen Delivery Method Room Air 10/21/23 13:16 Oxygen Flow Rate 0 10/21/23 13:16 Medical Decision Making Quality:SDOH Health Related Social Needs: No Data to Display Discharge Plan Disposition Patient Disposition: Home Discharge Details Clinical Impression: Mass of upper lobe of left lung Primary Care Provider: Rosalina Villar ED Provider: Enrique Salomon Home Meds and New Rx's Prescriptions: New lidocaine [Lidoderm] 5 % adhesive patch,medicated 1 patch topical DAILY Qty: 15 0RF Rx Instructions: leave on most painful area for up to 12 hrs Continued (DME) blood sugar diagnostic Strip 1 ea Miscellaneous QAM Qty: 90 3RF Rx Instructions: E11.9 - QD testing betamethasone valerate 0.1 % cream 1 applic topical DAILY PRN (Reason: skin irritation) Qty: 45 0RF sertraline 25 mg tablet 25 mg PO DAILY Qty: 30 2RF aspirin [Aspir-81] 81 MG tablet,delayed release (DR/EC) 81 mg PO DAILY Mag 64 64 MG tablet,delayed release (DR/EC) 64 mg PO DAILY Patient Comments: 08/07/16 500 mg daily. si (DME) blood-glucose meter [[email or web address] Ultra2 Meter] kit See Dose Instructions .ROUTE .MEDSUPPLY Qty: 1 0RF Dose Instruction: As directed Rx Instructions: As directed simvastatin 20 mg tablet 20 mg PO DAILY Qty: 90 3RF amlodipine 5 mg tablet 5 mg PO DAILY Qty: 90 3RF losartan 100 mg tablet 100 mg PO DAILY Qty: 90 3RF (DME) lancets Misc 1 ea Miscellaneous DAILY Qty: 90 4RF Rx Instructions: DX:250. use once daily. meloxicam 7.5 mg tablet 7.5 mg PO DAILY Qty: 90 3RF metformin 500 mg tablet 1,000 mg PO BID Qty: 360 3RF glipizide 5 mg tablet 5 mg PO BID Qty: 180 3RF omeprazole 10 mg capsule,delayed release(DR/EC) 10 mg PO DAILY Qty: 90 1RF Discharge Instructions Additional Instructions: You were seen in the emergency department for your chest pain. As we discussed, you have a mass in your lung for which you need a biopsy. Please follow-up with your primary care provider as a referral has been sent to the interventional radiology department at [facility] to have your biopsy performed. Please return to the emergency department if you develop worsening pain difficulty breathing or have any falls. For your pain please take medications as follows: 1. Take acetaminophen (Tylenol), 1,000 mg (two 500 mg tabs) every 6 hours You are also receiving several stronger medications to take as needed for pain. Please do not drink alcohol or operate any machinery or drive after taking these medications.
[2023-10-21 13:56] LABS: Abs Immature Grans 0.07 10^3/uL (0.0-0.06); Absolute Basophil Count 0.07 10^3/uL (0.0-0.2); Absolute Eosinophil Count 0.03 10^3/uL (0.0-0.7); Absolute Lymphocyte Count 1.04 10^3/uL (1.2-3.4); Absolute Monocyte Count 0.57 10^3/uL (0.1-0.8); Absolute Neutrophil Count 7.71 10^3/uL (1.2-6.7); Basophils % 0.7; Eosinophils % 0.3; HCT 39.5 % (40.0-50.0); HGB 13.4 g/dL (13.5-17.5); Immature Grans % 0.7; MCH 29.1 pg (27.0-33.0); MCHC 33.9 % (32.0-36.0); MCV 86 fL (80-95); MPV 9.8 fL (8.0-11.0); Neutrophils % 81.3; Platelet Count 286 10^3/uL (130-400); RBC 4.61 10^6/uL (4.36-5.78); RDW 12.7 % (11.8-14.1); RDW-SD 39.2 fL; WBC 9.49 10^3/uL (4.4-10.8)
[2023-10-21 14:11] LABS: Magnesium 1.5 mg/dL (1.8-2.4)
[2023-10-21] MEDS: Aspirin 81 MG CHEW 324 MG CH (14:14)
[2023-10-21 14:18] LABS: Anion Gap 10.2 mmol/L (3-11); BUN 16 mg/dL (7-18); CO2 27.8 mmol/L (21.0-32.0); CREATININE 1.1 mg/dL (0.70-1.30); Calcium 9.5 mg/dL (8.5-10.1); Chloride 99 mmol/L (98-107); Estimated GFR 67.86 (mL/min/1.73m2); Glucose 280 mg/dL (74-106); Potassium 3.9 mmol/L (3.5-5.1); Sodium 137 mmol/L (136-145); Troponin I < 50 ng/L (<or=60)
--- NOTE | 2023-10-21 14:22 | DI.RAD_ITS ---
Exam(s) XR PORTABLE CHEST AP EXAM: XR PORTABLE CHEST AP CLINICAL HISTORY: CP TECHNIQUE: 2D digital imaging was performed of the chest. One image was obtained. An AP view was ob tained. COMPARISON: CR CHEST 2 VIEWS PA,LAT from 01/28/2012 FINDINGS: MEDIASTINUM: Normal. HEART: Normal. PULMONARY VASCULATURE: Normal. LUNGS: There is a 4 cm opacity in the left lung apex. It is ovoid and mildly spiculated. The lungs are otherwise clear. PLEURAL SPACE: No pleural effusion or pneumothorax. BONE:Within normal limits for the patient's age. OTHER FINDINGS:Normal. IMPRESSION: 4 cm left apical opacity. Neoplasm is a primary diagnostic concern. A CT scan of the chest with con trast is recommended for further evaluation. Focal pneumonia cannot be entirely excluded in the formerly [facility] clinical setting. DATA REPOSITORY: RADIATION DOSE DELIVERED:
[2023-10-21 15:13] LABS: D-Dimer 589 ng/mlFEU (<500)
--- NOTE | 2023-10-21 15:15 | DI.CT_ITS ---
Exam(s) CT CHEST WO EXAM: CT CHEST WO CLINICAL HISTORY: Left upper lobe mass TECHNIQUE: Imaging Protocol: Axial computed tomography images with coronal and sagittal reformatted images were created and reviewed CONTRAST MATERIAL: Intravenous: Omnipaque 350 Contrast volume:structured data ml. COMPARISON: CR XR PORTABLE CHEST AP from 10/21/2023 FINDINGS: Pulmonary parenchyma: 4 x 2.5 by 4 centimeter spiculated mass left upper lobe which extends nearly to the pleura. There is some interstitial thickening and surrounding the mass which could represent l ymphangitic spread. Tracheobronchial tree: No bronchiectasis or mucous plugging. Mediastinum and Ashwini: 15 millimeter left hilar lymph node. Small lymph nodes adjacent to the aortic arch. Small hiatal hernia. Pleura: No effusion. No pneumothorax. Heart: The heart is not dilated. Moderate coronary artery calcifications are seen. Aorta: Thoracic aorta non-dilated. Mild atherosclerotic changes. Upper abdomen: Mildly limited by motion. No acute findings.. Bones: Degenerative changes in the spine. Compression fractures, lytic or blastic lesions. Soft tissues: Unremarkable. IMPRESSION: 4 centimeter left upper lobe mass with question of adjacent lymphangitic spread. 15 millimeter left hilar lymph node. RADIATION DOSE DELIVERED: !Error Total DLP DATA REPOSITORY: All CT scans at this facility are submitted to the National Radiology Data Registry (NRDR) Dose Index Registry (DIR) with the [employer] (ACR). RADIATION OPTIMIZATION: All CT scans at this facility use at least one of these dose optimization te chniques: automated exposure control; mA and/or kV adjustment per patient size (includes targeted exa ms where dose is matched to clinical indication); or iterative reconstruction.
--- NOTE | 2023-10-21 15:30 | RT.EKG_ITS ---
APPROVED REPORT Exam: Resting ECG Reason for Exam: Tachycardia Patient Location: E HR:75 bpm ECG Measurements Heart Rate 75 AXIS SC 159 P 73 QRSd 99 QRS 77 QT 414 T 61 QTc 464 Conclusion Sinus rhythm...normal P axis, V-rate 60- 99 Low voltage, extremity leads...all extremity leads <0.5mV Repeat ECG showing narrow complex normal sinus rhythm under 75. Normal axis. Low voltage similar to prior. SC and QTc within normal limits. Compared to prior patient does have mild new upsloping ST segment elevation in lead II. T wave flattening in aVL similar to prior. Mild upsloping ST segment elevation in lead V5 and V6.
--- NOTE | 2023-10-21 16:45 | RT.EKG_ITS ---
APPROVED REPORT Exam: Resting ECG Reason for Exam: Chest pain Patient Location: E HR:82 bpm ECG Measurements Heart Rate 82 AXIS NH 162 P 69 QRSd 95 QRS 87 QT 395 T 69 QTc 463 Conclusion Sinus rhythm...normal P axis, V-rate 60- 99 Low voltage, extremity leads...all extremity leads <0.5mV Repeat ECG showing narrow complex normal sinus rhythm at a rate of 82. Intervals within normal limit s. Significant artifact. No changes to mildly upsloping ST segment in lead II. No acute injury sailaja echols
--- NOTE | 2023-10-21 17:11 | NUR.NOTE ---
Referral Faxed to [facility] for Pt to be seen in 1-5 days for an Unknown New Lung Mass
[2023-10-21 17:14] LABS: Troponin I < 50 ng/L (<or=60)
[2023-10-21] MEDS: Acetaminophen 500 MG TAB 1000 MG PO (17:46)
== END 2023-10-21 18:00 | disposition home or self-care (01) ==
PROVIDERS: Emergency Provider Emergency Medicine; PCP Family Medicine
DX: R07.9 Chest pain, unspecified (principal); R91.8 Other nonspecific abnormal finding of lung field; E11.9 Type 2 diabetes mellitus without complications; I10 Essential (primary) hypertension; E78.5 Hyperlipidemia, unspecified; G20.A1 Parkinson's disease without dyskinesia, without mention of fluctuations; Z79.84 Long term (current) use of oral hypoglycemic drugs; Z79.82 Long term (current) use of aspirin; Z87.891 Personal history of nicotine dependence
CPT/HCPCS: 36415; 71250; 80048; 82962; 93005; 99285; 71045; 83735; 84484; 85025; 85379; 93010; 99284

== ENCOUNTER → 2024-01-05 12:17 | Outpatient (BNVA) | payer MEDICARE, SELFPAY | PROVIDERS: PCP Family Medicine; Referring Provider Family Medicine; Visit Provider Psychiatry & Neurology Neurology | DX: R41.3 Other amnesia (principal); K59.00 Constipation, unspecified; Z63.6 Dependent relative needing care at home | CPT/HCPCS: 99215 ==

== ENCOUNTER 2024-02-02 04:18 | Outpatient (CLI) | payer MEDICARE, SELFPAY ==
[2024-02-02 08:12] LABS: Abs Immature Grans 0.05 10^3/uL (0.0-0.06); Absolute Basophil Count 0.12 10^3/uL (0.0-0.2); Absolute Eosinophil Count 1.34 10^3/uL (0.0-0.7); Absolute Lymphocyte Count 2.19 10^3/uL (1.2-3.4); Absolute Monocyte Count 0.98 10^3/uL (0.1-0.8); Absolute Neutrophil Count 6.99 10^3/uL (1.2-6.7); Eosinophils % 11.5; HCT 39.3 % (40.0-50.0); HGB 13.1 g/dL (13.5-17.5); Immature Grans % 0.4; Lymphocytes % 18.8; MCH 28.3 pg (27.0-33.0); MCHC 33.3 % (32.0-36.0); MCV 85 fL (80-95); MPV 9.1 fL (8.0-11.0); Monocytes % 8.4; Neutrophils % 59.9; Platelet Count 302 10^3/uL (130-400); RBC 4.63 10^6/uL (4.36-5.78); RDW-SD 43.7 fL; WBC 11.67 10^3/uL (4.4-10.8)
[2024-02-02 08:30] LABS: ALT 12 U/L (16-63); AST 14 U/L (15-37); Albumin 3.6 g/dL (3.4-5.0); Alkaline Phosphatase 95 U/L (46-116); Anion Gap 13.2 mmol/L (3-11); BUN 16 mg/dL (7-18); Bilirubin, Total 0.5 mg/dL (0.2-1.0); CO2 23.8 mmol/L (21.0-32.0); Calcium 9.4 mg/dL (8.5-10.1); Chloride 102 mmol/L (98-107); Estimated GFR 76.08 (mL/min/1.73m2); Glucose 157 mg/dL (74-106); Magnesium 1.4 mg/dL (1.8-2.4); Potassium 4.2 mmol/L (3.5-5.1); Sodium 139 mmol/L (136-145); Total Protein 7.6 g/dL (6.4-8.2)
[2024-02-02 16:00] LABS: Vitamin B12 812 pg/mL (193-986)
== END 2024-02-02 04:19 | disposition home or self-care (01) ==
LOC: LBO 04:18
PROVIDERS: Psychiatry & Neurology Neurology; PCP Family Medicine; Visit Provider Internal Medicine Medical Oncology
DX: G62.9 Polyneuropathy, unspecified; I10 Essential (primary) hypertension
CPT/HCPCS: 36415; 80048; 80053; 82607; 83735; 85025

== ENCOUNTER 2024-02-28 04:55 | Outpatient (CLI) | payer MEDICARE, SELFPAY ==
[2024-02-28 07:52] LABS: Abs Immature Grans 0.22 10^3/uL (0.0-0.06); Absolute Basophil Count 0.14 10^3/uL (0.0-0.2); Absolute Eosinophil Count 0.93 10^3/uL (0.0-0.7); Absolute Lymphocyte Count 2.55 10^3/uL (1.2-3.4); Absolute Monocyte Count 1.16 10^3/uL (0.1-0.8); Basophils % 1.1 %; Eosinophils % 7.5 %; HCT 39.3 % (40.0-50.0); HGB 12.7 g/dL (13.5-17.5); Immature Grans % 1.8 %; Lymphocytes % 20.5 %; MCH 27.9 pg (27.0-33.0); MCHC 32.3 % (32.0-36.0); MCV 86 fL (80-95); MPV 8.8 fL (8.0-11.0); Monocytes % 9.3 %; Neutrophils % 59.8 %; Platelet Count 208 10^3/uL (130-400); RBC 4.56 10^6/uL (4.36-5.78); RDW-SD 43.6 fL; WBC 12.46 10^3/uL (4.4-10.8)
[2024-02-28 07:53] LABS: Absolute Neutrophil Count 7.45 10^3/uL (1.2-6.7)
[2024-02-28 08:19] LABS: ALT 9 U/L (16-63); AST 11 U/L (15-37); Alkaline Phosphatase 85 U/L (46-116); Anion Gap 9.6 mmol/L (3-11); BUN 23 mg/dL (7-18); Bilirubin, Total 0.4 mg/dL (0.2-1.0); CO2 29.4 mmol/L (21.0-32.0); CREATININE 0.9 mg/dL (0.70-1.30); Calcium 9.4 mg/dL (8.5-10.1); Chloride 102 mmol/L (98-107); Estimated GFR 86.34 (mL/min/1.73m2); Glucose 123 mg/dL (74-106); Magnesium 1.6 mg/dL (1.8-2.4); Potassium 4.3 mmol/L (3.5-5.1); Sodium 141 mmol/L (136-145); Total Protein 7.5 g/dL (6.4-8.2)
== END 2024-02-28 04:56 | disposition home or self-care (01) ==
LOC: LBO 04:55
PROVIDERS: PCP Family Medicine; Visit Provider Internal Medicine Medical Oncology
DX: C34.12 Malignant neoplasm of upper lobe, left bronchus or lung (principal)
CPT/HCPCS: 36415; 80053; 83735; 85025

== ENCOUNTER → 2024-03-15 01:33 | Outpatient (CLI) | payer MEDICARE, SELFPAY ==
[2024-03-15] MEDS: Normal Saline - Diluent 50 ML VIAL IJ (09:25)
[2024-03-15] MEDS: Omnipaque 350 MG/ML 500 ML BTL-Imaging package 70 ML IJ (09:26)
--- NOTE | 2024-03-15 09:33 | DI.CT_ITS ---
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 COMPARISON: CT CT CHEST WO from 10/21/2023 CR XR PORTABLE CHEST AP from 10/21/2023 FINDINGS: Pulmonary parenchyma: No consolidation. Interval increase in size of previously noted left upper lobe mass, now measuring 4.4 x 4.7 by 5.3 cm compared with 4 x 2.5 x 4 cm on the prior exam. It extends from the level of the hilum nearly to the pleura. Tracheobronchial tree: No bronchiectasis or mucous plugging. Mediastinum and Ashwini: Arm decreased size of left para-aortic lymph nodes. Single lymph node is seen measuring 7 millimeters. Small hiatal hernia. Pleura: No effusion. No pneumothorax. Heart: The heart is mildly dilated. Moderate coronary artery calcifications are seen. Aorta: Thoracic aorta non-dilated. Mild atherosclerotic changes. Upper abdomen: No acute findings.. Bones: Degenerative changes in the spine with prominent endplate osteophytes.. Soft tissues: Mild bilateral gynecomastia. IMPRESSION: Significant interval increase in size of previously noted left upper lobe mass. Decreased size of le ft para-aortic lymph nodes. RADIATION DOSE DELIVERED: 383.84mGy.cm Total DLP DATA REPOSITORY: All CT scans at this facility are submitted to the National Radiology Data Registry (NRDR) Dose Index Registry (DIR) with the [employer] (ACR). RADIATION OPTIMIZATION: All CT scans at this facility use at least one of these dose optimization te chniques: automated exposure control; mA and/or kV adjustment per patient size (includes targeted exa ms where dose is matched to clinical indication); or iterative reconstruction.
== END ==
PROVIDERS: PCP Family Medicine; Visit Provider Internal Medicine Medical Oncology
DX: C34.12 Malignant neoplasm of upper lobe, left bronchus or lung (principal)
CPT/HCPCS: 71260

== ENCOUNTER 2024-03-20 04:40 | Outpatient (CLI) | payer MEDICARE, SELFPAY ==
[2024-03-20 08:09] LABS: Abs Immature Grans 0.19 10^3/uL (0.0-0.06); Absolute Basophil Count 0.13 10^3/uL (0.0-0.2); Absolute Lymphocyte Count 2.21 10^3/uL (1.2-3.4); Absolute Monocyte Count 1.11 10^3/uL (0.1-0.8); Absolute Neutrophil Count 5.83 10^3/uL (1.2-6.7); Basophils % 1.3 %; Eosinophils % 3.1 %; HCT 36.5 % (40.0-50.0); HGB 12.1 g/dL (13.5-17.5); Immature Grans % 1.9 %; Lymphocytes % 22.6 %; MCH 28.3 pg (27.0-33.0); MCHC 33.2 % (32.0-36.0); MCV 86 fL (80-95); MPV 8.3 fL (8.0-11.0); Monocytes % 11.4 %; Neutrophils % 59.7 %; Platelet Count 234 10^3/uL (130-400); RBC 4.27 10^6/uL (4.36-5.78); RDW 14.2 % (11.8-14.1); RDW-SD 43.8 fL; WBC 9.77 10^3/uL (4.4-10.8)
[2024-03-20 08:24] LABS: ALT 13 U/L (16-63); AST 11 U/L (15-37); Albumin 3.9 g/dL (3.4-5.0); Alkaline Phosphatase 82 U/L (46-116); Anion Gap 8.9 mmol/L (3-11); BUN 17 mg/dL (7-18); Bilirubin, Total 0.3 mg/dL (0.2-1.0); CO2 30.1 mmol/L (21.0-32.0); Calcium 9.5 mg/dL (8.5-10.1); Chloride 103 mmol/L (98-107); Estimated GFR 76.08 (mL/min/1.73m2); Glucose 107 mg/dL (74-106); Magnesium 1.7 mg/dL (1.8-2.4); Sodium 142 mmol/L (136-145); Total Protein 7.3 g/dL (6.4-8.2)
== END 2024-03-20 04:41 | disposition home or self-care (01) ==
LOC: LBO 04:40
PROVIDERS: PCP Family Medicine; Visit Provider Internal Medicine Medical Oncology
DX: C34.12 Malignant neoplasm of upper lobe, left bronchus or lung (principal)
CPT/HCPCS: 36415; 80053; 83735; 85025

== ENCOUNTER 2024-04-10 02:55 | Outpatient (CLI) | payer MEDICARE, SELFPAY ==
[2024-04-10 08:13] LABS: Abs Immature Grans 0.24 10^3/uL (0.0-0.06); Absolute Basophil Count 0.09 10^3/uL (0.0-0.2); Absolute Eosinophil Count 0.14 10^3/uL (0.0-0.7); Absolute Lymphocyte Count 1.73 10^3/uL (1.2-3.4); Absolute Monocyte Count 0.99 10^3/uL (0.1-0.8); Absolute Neutrophil Count 4.71 10^3/uL (1.2-6.7); Basophils % 1.1 %; Eosinophils % 1.8 %; HCT 37.4 % (40.0-50.0); HGB 12.2 g/dL (13.5-17.5); Lymphocytes % 21.9 %; MCH 28.6 pg (27.0-33.0); MCHC 32.6 % (32.0-36.0); MCV 88 fL (80-95); MPV 8.2 fL (8.0-11.0); Monocytes % 12.5 %; Neutrophils % 59.7 %; Platelet Count 182 10^3/uL (130-400); RBC 4.26 10^6/uL (4.36-5.78); RDW 14.6 % (11.8-14.1); RDW-SD 46.3 fL
[2024-04-10 08:30] LABS: ALT 13 U/L (16-63); AST 15 U/L (15-37); Albumin 3.9 g/dL (3.4-5.0); Alkaline Phosphatase 77 U/L (46-116); BUN 15 mg/dL (7-18); Bilirubin, Total 0.33 mg/dL (0.2-1.0); CREATININE 0.9 mg/dL (0.70-1.30); Calcium 9.5 mg/dL (8.5-10.1); Chloride 103 mmol/L (98-107); Estimated GFR 86.34 (mL/min/1.73m2); Glucose 151 mg/dL (74-106); Magnesium 1.4 mg/dL (1.8-2.4); Potassium 4.1 mmol/L (3.5-5.1); Sodium 143 mmol/L (136-145); Total Protein 7.3 g/dL (6.4-8.2)
== END 2024-04-10 02:56 | disposition home or self-care (01) ==
LOC: LBO 02:55
PROVIDERS: PCP Family Medicine; Visit Provider Internal Medicine Medical Oncology
DX: C34.12 Malignant neoplasm of upper lobe, left bronchus or lung (principal)
CPT/HCPCS: 36415; 80053; 83735; 85025

== ENCOUNTER 2024-05-01 03:25 | Outpatient (CLI) | payer MEDICARE, SELFPAY ==
[2024-05-01 08:25] LABS: Abs Immature Grans 0.25 10^3/uL (0.0-0.06); Absolute Basophil Count 0.09 10^3/uL (0.0-0.2); Absolute Eosinophil Count 0.21 10^3/uL (0.0-0.7); Absolute Lymphocyte Count 2.46 10^3/uL (1.2-3.4); Absolute Monocyte Count 1.39 10^3/uL (0.1-0.8); Absolute Neutrophil Count 6.03 10^3/uL (1.2-6.7); Basophils % 0.9 %; HGB 11.5 g/dL (13.5-17.5); Immature Grans % 2.4 %; Lymphocytes % 23.6 %; MCH 28.9 pg (27.0-33.0); MCHC 32.9 % (32.0-36.0); MCV 88 fL (80-95); MPV 8.2 fL (8.0-11.0); Monocytes % 13.3 %; Neutrophils % 57.8 %; Platelet Count 189 10^3/uL (130-400); RBC 3.98 10^6/uL (4.36-5.78); RDW 14.9 % (11.8-14.1); RDW-SD 47.8 fL; WBC 10.43 10^3/uL (4.4-10.8)
[2024-05-01 08:40] LABS: ALT 11 U/L (16-63); AST 15 U/L (15-37); Albumin 3.6 g/dL (3.4-5.0); Alkaline Phosphatase 93 U/L (46-116); BUN 20 mg/dL (7-18); Bilirubin, Total 0.32 mg/dL (0.2-1.0); Calcium 9.3 mg/dL (8.5-10.1); Chloride 102 mmol/L (98-107); Estimated GFR 76.08 (mL/min/1.73m2); Glucose 127 mg/dL (74-106); Magnesium 1.6 mg/dL (1.8-2.4); Sodium 140 mmol/L (136-145); Total Protein 7.3 g/dL (6.4-8.2)
== END 2024-05-01 03:26 | disposition home or self-care (01) ==
LOC: LBO 03:25
PROVIDERS: PCP Family Medicine; Visit Provider Internal Medicine Medical Oncology
DX: C34.12 Malignant neoplasm of upper lobe, left bronchus or lung (principal)
CPT/HCPCS: 36415; 80053; 83735; 85025

== ENCOUNTER 2024-06-12 03:13 | Outpatient (CLI) | payer MEDICARE, SELFPAY ==
[2024-06-12 12:26] LABS: Abs Immature Grans 0.02 10^3/uL (0.0-0.06); Absolute Basophil Count 0.05 10^3/uL (0.0-0.2); Absolute Eosinophil Count 0.37 10^3/uL (0.0-0.7); Absolute Lymphocyte Count 0.75 10^3/uL (1.2-3.4); Absolute Neutrophil Count 3.63 10^3/uL (1.2-6.7); Basophils % 0.9 %; Eosinophils % 6.7 %; HCT 35.7 % (40.0-50.0); HGB 11.7 g/dL (13.5-17.5); Immature Grans % 0.4 %; Lymphocytes % 13.6 %; MCH 29.9 pg (27.0-33.0); MCHC 32.8 % (32.0-36.0); MCV 91 fL (80-95); MPV 8.4 fL (8.0-11.0); Monocytes % 12.7 %; Neutrophils % 65.7 %; Platelet Count 176 10^3/uL (130-400); RBC 3.91 10^6/uL (4.36-5.78); RDW 14.2 % (11.8-14.1); RDW-SD 47.4 fL; WBC 5.52 10^3/uL (4.4-10.8)
[2024-06-12 12:43] LABS: ALT 11 U/L (16-63); AST 15 U/L (15-37); Albumin 3.8 g/dL (3.4-5.0); Alkaline Phosphatase 84 U/L (46-116); Anion Gap 8.1 mmol/L (3-11); BUN 23 mg/dL (7-18); Bilirubin, Total 0.42 mg/dL (0.2-1.0); CO2 27.9 mmol/L (21.0-32.0); Calcium 9.2 mg/dL (8.5-10.1); Chloride 102 mmol/L (98-107); Estimated GFR 75.61 (mL/min/1.73m2); Glucose 123 mg/dL (74-106); Magnesium 1.6 mg/dL (1.8-2.4); Potassium 4.3 mmol/L (3.5-5.1); Sodium 138 mmol/L (136-145); Total Protein 7.3 g/dL (6.4-8.2)
== END 2024-06-12 03:14 | disposition home or self-care (01) ==
LOC: LBO 03:13
PROVIDERS: PCP Family Medicine; Visit Provider Internal Medicine Medical Oncology
DX: C34.12 Malignant neoplasm of upper lobe, left bronchus or lung (principal)
CPT/HCPCS: 36415; 80053; 83735; 85025

== ENCOUNTER 2024-07-17 03:03 | Outpatient (CLI) | payer MEDICARE, SELFPAY ==
[2024-07-17 11:47] LABS: Abs Immature Grans 0.04 10^3/uL (0.0-0.06); Absolute Basophil Count 0.04 10^3/uL (0.0-0.2); Absolute Eosinophil Count 0.51 10^3/uL (0.0-0.7); Absolute Monocyte Count 0.89 10^3/uL (0.1-0.8); Absolute Neutrophil Count 4.71 10^3/uL (1.2-6.7); Basophils % 0.6 %; Eosinophils % 7.3 %; HCT 35.5 % (40.0-50.0); HGB 11.7 g/dL (13.5-17.5); Immature Grans % 0.6 %; Lymphocytes % 11.4 %; MCH 30.1 pg (27.0-33.0); MCV 91 fL (80-95); MPV 8.7 fL (8.0-11.0); Monocytes % 12.7 %; Neutrophils % 67.4 %; Platelet Count 229 10^3/uL (130-400); RBC 3.89 10^6/uL (4.36-5.78); RDW 13.1 % (11.8-14.1); RDW-SD 43.6 fL; WBC 6.99 10^3/uL (4.4-10.8)
[2024-07-17 12:20] LABS: ALT 21 U/L (16-63); AST 31 U/L (15-37); Albumin 3.6 g/dL (3.4-5.0); Alkaline Phosphatase 118 U/L (46-116); Anion Gap 8.5 mmol/L (3-11); BUN 23 mg/dL (7-18); Bilirubin, Total 0.41 mg/dL (0.2-1.0); CO2 27.5 mmol/L (21.0-32.0); CREATININE 1.2 mg/dL (0.70-1.30); Calcium 9.6 mg/dL (8.5-10.1); Chloride 100 mmol/L (98-107); Estimated GFR 60.75 (mL/min/1.73m2); FREE T4 1.11 ng/dL (0.76-1.46); Glucose 169 mg/dL (74-106); Magnesium 1.8 mg/dL (1.8-2.4); Potassium 4.2 mmol/L (3.5-5.1); Sodium 136 mmol/L (136-145); TSH 1.45 uIU/Ml (0.36-3.74); Total Protein 7.5 g/dL (6.4-8.2)
== END 2024-07-17 03:04 | disposition home or self-care (01) ==
LOC: LBO 03:03
PROVIDERS: PCP Family Medicine; Visit Provider Internal Medicine Medical Oncology
DX: Z79.899 Other long term (current) drug therapy (principal); C34.12 Malignant neoplasm of upper lobe, left bronchus or lung
CPT/HCPCS: 36415; 80053; 83735; 84439; 84443; 85025

== ENCOUNTER 2024-08-02 05:10 | Outpatient (CLI) | payer MEDICARE, SELFPAY ==
[2024-08-02 10:09] LABS: Abs Immature Grans 0.13 10^3/uL (0.0-0.06); Absolute Basophil Count 0.06 10^3/uL (0.0-0.2); Absolute Eosinophil Count 1.03 10^3/uL (0.0-0.7); Absolute Lymphocyte Count 0.86 10^3/uL (1.2-3.4); Absolute Monocyte Count 1.05 10^3/uL (0.1-0.8); Absolute Neutrophil Count 6.88 10^3/uL (1.2-6.7); Basophils % 0.6 %; Eosinophils % 10.3 %; HCT 34.3 % (40.0-50.0); HGB 11.3 g/dL (13.5-17.5); Immature Grans % 1.3 %; Lymphocytes % 8.6 %; MCH 29.8 pg (27.0-33.0); MCHC 32.9 % (32.0-36.0); MCV 91 fL (80-95); MPV 8.6 fL (8.0-11.0); Monocytes % 10.5 %; Neutrophils % 68.7 %; Platelet Count 226 10^3/uL (130-400); RBC 3.79 10^6/uL (4.36-5.78); RDW-SD 42.9 fL; WBC 10.01 10^3/uL (4.4-10.8)
[2024-08-02 10:59] LABS: ALT 12 U/L (16-63); AST 16 U/L (15-37); Albumin 3.4 g/dL (3.4-5.0); Alkaline Phosphatase 109 U/L (46-116); Anion Gap 7.2 mmol/L (3-11); BUN 16 mg/dL (7-18); Bilirubin, Total 0.36 mg/dL (0.2-1.0); CO2 30.8 mmol/L (21.0-32.0); CREATININE 1.1 mg/dL (0.70-1.30); Calcium 9.6 mg/dL (8.5-10.1); Chloride 101 mmol/L (98-107); Estimated GFR 67.44 (mL/min/1.73m2); FREE T4 0.95 ng/dL (0.76-1.46); Glucose 221 mg/dL (74-106); Magnesium 1.4 mg/dL (1.8-2.4); Potassium 4.2 mmol/L (3.5-5.1); Sodium 139 mmol/L (136-145); TSH 1.44 uIU/mL (0.36-3.74); Total Protein 7.5 g/dL (6.4-8.2)
== END 2024-08-02 05:11 | disposition home or self-care (01) ==
LOC: LBO 05:10
PROVIDERS: PCP Family Medicine; Visit Provider Internal Medicine Medical Oncology
DX: Z79.899 Other long term (current) drug therapy (principal); C34.12 Malignant neoplasm of upper lobe, left bronchus or lung
CPT/HCPCS: 36415; 80053; 83735; 84439; 84443; 85025

== ENCOUNTER 2024-08-22 01:04 | Outpatient (CLI) | payer MEDICARE, SELFPAY ==
--- NOTE | 2024-08-22 | DI.CT_ITS ---
Exam(s) CT CHEST W EXAM: CT CHEST W CLINICAL HISTORY: Primary malignant neoplasm of bronchus of [place], C34.12; NSCLC, surveillance, TECHNIQUE: Imaging Protocol: Axial computed tomography images with coronal and sagittal reformatted images were created and reviewed. Computer aided detection (CAD) was utilized. CONTRAST MATERIAL: Intravenous: Omnipaque 350Contrast volume:70 mL. COMPARISON: CT CT CHEST W from 03/15/2024 FINDINGS: Tracheobronchial tree: Patent where visualized. Please see the section under pulmonary parenchyma. Pulmonary parenchyma: There are new pulmonary nodules present. There is a 5 mm nodule in the lateral aspect of the right lower lobe (series 8, image 82) which was not present on the prior examination. There is a 2 mm nodule in the right lower lobe not present on the prior examination (series 8, image 90). There is been continued decrease in size of the left upper lobe mass which now measures 2.1 x 3.1 cm (series 8, image 40). There are new peripheral predominantly ground-glass infiltrates in the left lung apex. There is also now an opacity in the superior segment of the left lower lobe with ass ociated bronchiectasis now. Calcified granuloma is seen in the right upper lobe. Mediastinum and Ashwini: No dominant adenopathy or fluid collection. The esophagus is unremarkable. Thyroid gland: Stable heterogeneity of the right lobe of the thyroid gland. Pleura: No effusion or pneumothorax. Heart: The heart is not dilated. Coronary artery calcification is present. No pericardial effusion. Aorta: Thoracic aorta non-dilated. Atherosclerotic calcification is present. Pulmonary arteries: Due to the timing of the bolus, evaluation of the pulmonary arteries is limited. No large central pulmonary embolism is present. Upper abdomen: Unremarkable. Lymph nodes: Within normal limits. Bones: Within normal limits for the patient's age. Soft tissues: Mild gynecomastia. IMPRESSION: 1. Interval decrease in size of the left upper lobe mass. 2. Development of new pulmonary nodules best appreciated in the right lower lobe. 3. New predominantly peripheral infiltrate in the left upper lobe. 4. New area of scarring and traction bronchiectasis in the superior segment of the left lower lobe. This may be treatment related. Atelectasis/Pneumonia should also be considered. RADIATION DOSE DELIVERED: 212.48mGy.cm Total DLP DATA REPOSITORY: All CT scans at this facility are submitted to the National Radiology Data Registry (NRDR) Dose Index Registry (DIR) with the [employer] (ACR). RADIATION OPTIMIZATION: All CT scans at this facility use at least one of these dose optimization te chniques: automated exposure control; mA and/or kV adjustment per patient size (includes targeted exa ms where dose is matched to clinical indication); or iterative reconstruction.
[2024-08-22] MEDS: Omnipaque 350 MG/ML 500 ML BTL-Imaging package IJ (10:04)
[2024-08-22] MEDS: Normal Saline - Diluent 50 ML VIAL IJ (10:05)
== END 2024-08-22 01:24 ==
LOC: DI 01:04
PROVIDERS: PCP Family Medicine; Visit Provider Nurse Practitioner Family
DX: C34.12 Malignant neoplasm of upper lobe, left bronchus or lung (principal); R91.8 Other nonspecific abnormal finding of lung field
CPT/HCPCS: 71260

== ENCOUNTER → 2024-08-23 12:51 | Outpatient (BNVA) | payer MEDICARE, SELFPAY | PROVIDERS: PCP Family Medicine; Visit Provider Psychiatry & Neurology Neurology | DX: G31.84 Mild cognitive impairment of uncertain or unknown etiology (principal); K59.00 Constipation, unspecified; Z63.6 Dependent relative needing care at home | CPT/HCPCS: 99213 ==

== ENCOUNTER 2024-08-28 13:26 | Outpatient (CLI) | payer MEDICARE, SELFPAY ==
[2024-08-28 13:37] LABS: Abs Immature Grans 0.05 10^3/uL (0.0-0.06); Absolute Basophil Count 0.07 10^3/uL (0.0-0.2); Absolute Eosinophil Count 0.69 10^3/uL (0.0-0.7); Absolute Monocyte Count 0.74 10^3/uL (0.1-0.8); Absolute Neutrophil Count 5.44 10^3/uL (1.2-6.7); Basophils % 0.9 %; Eosinophils % 8.5 %; HGB 11.2 g/dL (13.5-17.5); Immature Grans % 0.6 %; Lymphocytes % 13.6 %; MCH 29.4 pg (27.0-33.0); MCHC 32.9 % (32.0-36.0); MCV 89 fL (80-95); MPV 8.6 fL (8.0-11.0); Monocytes % 9.1 %; Neutrophils % 67.3 %; Platelet Count 237 10^3/uL (130-400); RBC 3.81 10^6/uL (4.36-5.78); RDW 13.5 % (11.8-14.1); RDW-SD 44.1 fL; WBC 8.09 10^3/uL (4.4-10.8)
[2024-08-28 14:00] LABS: ALT 8 U/L (16-63); AST 14 U/L (15-37); Albumin 3.5 g/dL (3.4-5.0); Alkaline Phosphatase 102 U/L (46-116); Anion Gap 8.5 mmol/L (3-11); BUN 15 mg/dL (7-18); Bilirubin, Total 0.36 mg/dL (0.2-1.0); CO2 28.5 mmol/L (21.0-32.0); CREATININE 0.9 mg/dL (0.70-1.30); Calcium 9.4 mg/dL (8.5-10.1); Chloride 104 mmol/L (98-107); FREE T4 0.95 ng/dL (0.76-1.46); Glucose 146 mg/dL (74-106); Magnesium 1.5 mg/dL (1.8-2.4); Potassium 4.2 mmol/L (3.5-5.1); Sodium 141 mmol/L (136-145); TSH 1.52 uIU/mL (0.36-3.74); Total Protein 7.4 g/dL (6.4-8.2)
[2024-08-28 14:28] LABS: Ferritin 145 ng/mL (26-388)
== END 2024-08-28 13:27 | disposition home or self-care (01) ==
LOC: LBO 13:27
PROVIDERS: PCP Family Medicine; Visit Provider Internal Medicine Medical Oncology
DX: D64.9 Anemia, unspecified (principal); Z79.899 Other long term (current) drug therapy; C34.12 Malignant neoplasm of upper lobe, left bronchus or lung
CPT/HCPCS: 36415; 80053; 82728; 83735; 84439; 84443; 85025

== ENCOUNTER 2024-09-25 02:17 | Outpatient (CLI) | payer MEDICARE, SELFPAY ==
[2024-09-25 13:49] LABS: Abs Immature Grans 0.07 10^3/uL (0.0-0.06); Absolute Basophil Count 0.08 10^3/uL (0.0-0.2); Absolute Eosinophil Count 0.62 10^3/uL (0.0-0.7); Absolute Lymphocyte Count 1.14 10^3/uL (1.2-3.4); Absolute Monocyte Count 0.78 10^3/uL (0.1-0.8); Eosinophils % 8.1 %; HCT 37.4 % (40.0-50.0); HGB 12.1 g/dL (13.5-17.5); Immature Grans % 0.9 %; Lymphocytes % 14.8 %; MCH 28.5 pg (27.0-33.0); MCHC 32.4 % (32.0-36.0); MCV 88 fL (80-95); MPV 8.6 fL (8.0-11.0); Monocytes % 10.1 %; Neutrophils % 65.1 %; Platelet Count 210 10^3/uL (130-400); RBC 4.24 10^6/uL (4.36-5.78); RDW 13.8 % (11.8-14.1); RDW-SD 44.3 fL; WBC 7.69 10^3/uL (4.4-10.8)
[2024-09-25 14:14] LABS: ALT 12 U/L (16-63); AST 16 U/L (15-37); Albumin 3.8 g/dL (3.4-5.0); Alkaline Phosphatase 107 U/L (46-116); Anion Gap 8.7 mmol/L (3-11); BUN 15 mg/dL (7-18); Bilirubin, Total 0.39 mg/dL (0.2-1.0); CO2 29.3 mmol/L (21.0-32.0); Calcium 9.6 mg/dL (8.5-10.1); Chloride 103 mmol/L (98-107); Estimated GFR 75.61 (mL/min/1.73m2); FREE T4 1.19 ng/dL (0.76-1.46); Glucose 130 mg/dL (74-106); Magnesium 1.6 mg/dL (1.8-2.4); Potassium 4.1 mmol/L (3.5-5.1); Sodium 141 mmol/L (136-145); TSH 0.63 uIU/mL (0.36-3.74); Total Protein 7.7 g/dL (6.4-8.2)
== END 2024-09-25 02:18 | disposition home or self-care (01) ==
LOC: LBO 02:17
PROVIDERS: PCP Family Medicine; Visit Provider Internal Medicine Medical Oncology
DX: Z79.899 Other long term (current) drug therapy (principal); C34.12 Malignant neoplasm of upper lobe, left bronchus or lung
CPT/HCPCS: 36415; 80053; 83735; 84439; 84443; 85025

== ENCOUNTER 2024-09-28 02:05 | Outpatient (CLI) | payer MEDICARE, SELFPAY ==
[2024-09-28] MEDS: Gadoterate meglumine 20 ML SYRINGE IVP (11:15)
[2024-09-28] MEDS: Normal Saline Flush 10 ML SYR IVP (11:16)
--- NOTE | 2024-09-28 14:55 | DI.MRI_ITS ---
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 Both noninfused and contrast i nfused sequences were performed. IV Contrast injected was cc Dotarem. COMPARISON: No exams were available for comparison FINDINGS: CEREBRAL PARENCHYMA: No evidence of intracranial hemorrhage, mass effect nor shift of midline structu re. No extraaxial fluid collections. There is mild ventriculomegaly of lateral ventricles noted. Area signal abnormality in the medial anterior temporal lobe appears to be volume averaging with the tempo ral horn the lateral ventricle (as opposed to a lesion). There is no significant focal signal abnormality in the cerebellar hemispheres. Some mild increased signal is noted in the central left side of the rena, not associated with hemorrhage nor restricted d iffusion. No abnormal signal in the thalami. There is symmetrical signal abnormality in the Corrine in supra ventricular white matter consistent with chronic small vessel disease. There are no ring enha ncing lesions in the brain. No abnormal meningeal enhancement evident. DWI: No areas of restricted diffusion to suggest acute ischemic event. SWI: There is a focus of susceptibility artifact in the high right frontal lobe most probably related to prior small hemorrhage at this level. There is no acute hemorrhage. PITUITARY GLAND: No mass nor parasellar abnormality. No obvious abnormality in the cavernous sinuses. FLOW VOIDS: The expected flow void are noted. No evidence of obvious aneurysm nor obvious vascular ma lformation. PARANASAL SINUSES: The visualized paranasal sinuses appear unremarkable. There is effusion evident in left-sided mastoid air cells. Right mastoid air cells are clear. ORBITS: Prior cataract surgery both orbits. No acute orbital findings. IMPRESSION: 1. No ring enhancing lesions in the brain and no abnormal meningeal enhancement. 2. Chronic small-vessel ischemic changes without evidence of acute ischemic event. 3. Small focus of susceptibility artifact in the high right frontal lobe seen on SWI imaging which m ay reflect prior small hemorrhage at this level. There is no acute hemorrhage evident at this level nor elsewhere in the brain. 4. Mild ventriculomegaly of the lateral ventricles noted although there is also symmetrical involuti onal change agent both cortical convexities. Correlation with any clinical signs of normal pressure h ydrocephalus recommended. DATA REPOSITORY:
== END 2024-09-28 02:25 ==
PROVIDERS: PCP Family Medicine; Visit Provider Family Medicine
DX: I67.82 Cerebral ischemia (principal)
CPT/HCPCS: 70553

== ENCOUNTER 2024-10-16 01:30 | Outpatient (CLI) | payer MEDICARE, SELFPAY ==
--- NOTE | 2024-10-16 | DI.CT_ITS ---
Exam(s) CT CHEST W EXAM: CT CHEST W CLINICAL HISTORY: NSCLC s/p treatment with radiation to primary site in [place], C34.12, COVID. TECHNIQUE: Multi planar reconstructions were performed. CONTRAST MATERIAL: Omnipaque 350; 70 cc COMPARISON: CT CT CHEST W from 03/15/[address] CHEST W from 08/22/2024 FINDINGS: CHEST: LUNGS: Compared to the CT scan of 08/22/2024 the amount of parahilar infiltrate in the left lower lob e superior segment has significantly decreased and there are no new findings in the left lower lobe. The size of the parahilar left upper lobe infiltrate, however, has not decreased and indeed appears slightly larger. There is no pleural effusion. No new findings in the left mainstem bronchus. In the opposite-right lung there is a right lower lobe noncalcified 5 mm nodule again noted, unchang ed from 08/22/2024 but not evident on the CT scan of 03/15/2024 and therefore most likely metastatic. The smaller 2 millimeter nodule in the peripheral lateral basal segment of the right lower lobe is unchanged from 03/15/2024. There is a 3 millimeter right upper lobe nodule which is unchanged from 0 03/15/2024. There are no new right lung nodules when compared to 08/22/2024 and there are no pleural effusions on either side. No new findings in the trachea and mainstem bronchi. MEDIASTINUM: There is no new hilar nor new mediastinal lymphadenopathy. There is a nodule in the rig ht thyroid lobe again noted CARDIAC: Heart size is normal. There is no pericardial effusion.Coronary artery calcification noted. Diameter of the thoracic aorta is age-appropriate. No evidence of dissection. VISUALIZED UPPER ABDOMEN:There are no significant adrenal masses. OSSEOUS: No significant osseous lesions.No fractures.. IMPRESSION: 1. Compared to the CT scan of 08/22/2024 there is still persistent upper lobe infiltrate. The amoun t of infiltrate in the superior segment of the left lower lobe as decreased. However, the amount of infiltrate in the left upper lobe appears to have slightly increased. There are no pleural effusions nor increasing adenopathy. 2. Three right lung nodules are again noted, the largest measuring 5 mm (right lower lobe), this unch anged from 08/22/2024 and not evident on 03/15/2024 3. No pleural effusions on either side. RADIATION DOSE DELIVERED: 137.07mGy.cm Total DLP DATA REPOSITORY: All CT scans at this facility are submitted to the National Radiology Data Registry (NRDR) Dose Index Registry (DIR) with the [employer] (ACR). RADIATION OPTIMIZATION: All CT scans at this facility use at least one of these dose optimization te chniques: automated exposure control; mA and/or kV adjustment per patient size (includes targeted exa ms where dose is matched to clinical indication); or iterative reconstruction.
[2024-10-16] MEDS: Omnipaque 350 MG/ML 500 ML BTL-Imaging package IJ (10:42)
[2024-10-16] MEDS: Normal Saline - Diluent 50 ML VIAL IJ (10:43)
== END 2024-10-16 01:50 ==
LOC: DI 01:30
PROVIDERS: PCP Family Medicine; Visit Provider Internal Medicine Medical Oncology
DX: C34.12 Malignant neoplasm of upper lobe, left bronchus or lung (principal)
CPT/HCPCS: 71260

== ENCOUNTER 2024-10-23 03:58 | Outpatient (CLI) | payer MEDICARE, SELFPAY ==
[2024-10-23 12:58] LABS: Abs Immature Grans 0.04 10^3/uL (0.0-0.06); Absolute Basophil Count 0.06 10^3/uL (0.0-0.2); Absolute Lymphocyte Count 1.21 10^3/uL (1.2-3.4); Absolute Monocyte Count 0.76 10^3/uL (0.1-0.8); Absolute Neutrophil Count 5.78 10^3/uL (1.2-6.7); Basophils % 0.7 %; Eosinophils % 8.2 %; HCT 38.4 % (40.0-50.0); HGB 12.5 g/dL (13.5-17.5); Immature Grans % 0.5 %; Lymphocytes % 14.2 %; MCH 28.5 pg (27.0-33.0); MCHC 32.6 % (32.0-36.0); MCV 88 fL (80-95); MPV 8.3 fL (8.0-11.0); Monocytes % 8.9 %; Neutrophils % 67.5 %; Platelet Count 219 10^3/uL (130-400); RBC 4.38 10^6/uL (4.36-5.78); RDW 14.2 % (11.8-14.1); RDW-SD 45.4 fL; WBC 8.55 10^3/uL (4.4-10.8)
[2024-10-23 13:22] LABS: ALT 23 U/L (16-63); AST 19 U/L (15-37); Albumin 3.9 g/dL (3.4-5.0); Alkaline Phosphatase 101 U/L (46-116); Anion Gap 6.8 mmol/L (3-11); BUN 22 mg/dL (7-18); Bilirubin, Total 0.37 mg/dL (0.2-1.0); CO2 29.2 mmol/L (21.0-32.0); CREATININE 1.2 mg/dL (0.70-1.30); Chloride 102 mmol/L (98-107); Estimated GFR 60.75 (mL/min/1.73m2); FREE T4 0.98 ng/dL (0.76-1.46); Glucose 155 mg/dL (74-106); Magnesium 1.6 mg/dL (1.8-2.4); Sodium 138 mmol/L (136-145); TSH 1.11 uIU/mL (0.36-3.74); Total Protein 7.7 g/dL (6.4-8.2)
== END 2024-10-23 03:59 | disposition home or self-care (01) ==
LOC: LBO 03:58
PROVIDERS: PCP Family Medicine; Visit Provider Internal Medicine Medical Oncology
DX: Z79.899 Other long term (current) drug therapy (principal); C34.12 Malignant neoplasm of upper lobe, left bronchus or lung
CPT/HCPCS: 36415; 80053; 83735; 84439; 84443; 85025

== ENCOUNTER 2024-11-20 01:15 | Outpatient (CLI) | payer MEDICARE, SELFPAY ==
[2024-11-20 13:30] LABS: Abs Immature Grans 0.05 10^3/uL (0.0-0.06); Absolute Basophil Count 0.08 10^3/uL (0.0-0.2); Absolute Eosinophil Count 0.54 10^3/uL (0.0-0.7); Absolute Lymphocyte Count 1.16 10^3/uL (1.2-3.4); Absolute Monocyte Count 0.87 10^3/uL (0.1-0.8); Absolute Neutrophil Count 6.99 10^3/uL (1.2-6.7); Basophils % 0.8 %; Eosinophils % 5.6 %; HCT 37.4 % (40.0-50.0); Immature Grans % 0.5 %; MCHC 32.1 % (32.0-36.0); MCV 87 fL (80-95); MPV 8.5 fL (8.0-11.0); Neutrophils % 72.1 %; Platelet Count 228 10^3/uL (130-400); RBC 4.28 10^6/uL (4.36-5.78); RDW-SD 44.9 fL; WBC 9.69 10^3/uL (4.4-10.8)
[2024-11-20 13:59] LABS: ALT 19 U/L (16-63); AST 17 U/L (15-37); Albumin 3.7 g/dL (3.4-5.0); Alkaline Phosphatase 118 U/L (46-116); Anion Gap 8.6 mmol/L (3-11); BUN 18 mg/dL (7-18); Bilirubin, Total 0.37 mg/dL (0.2-1.0); CO2 28.4 mmol/L (21.0-32.0); CREATININE 1.1 mg/dL (0.70-1.30); Calcium 9.7 mg/dL (8.5-10.1); Chloride 101 mmol/L (98-107); Estimated GFR 67.44 (mL/min/1.73m2); Glucose 154 mg/dL (74-106); Magnesium 1.4 mg/dL (1.8-2.4); Potassium 4.1 mmol/L (3.5-5.1); Sodium 138 mmol/L (136-145); Total Protein 7.8 g/dL (6.4-8.2)
[2024-11-20 15:46] LABS: FREE T4 0.89 ng/dL (0.76-1.46)
== END 2024-11-20 01:16 | disposition home or self-care (01) ==
PROVIDERS: PCP Family Medicine; Visit Provider Internal Medicine Medical Oncology
DX: Z79.899 Other long term (current) drug therapy (principal); C34.12 Malignant neoplasm of upper lobe, left bronchus or lung
CPT/HCPCS: 36415; 80053; 83735; 84439; 84443; 85025

== ENCOUNTER → 2024-12-06 14:50 | Outpatient (BNVA) | payer MEDICARE, SELFPAY | PROVIDERS: PCP Family Medicine; Referring Provider Family Medicine; Visit Provider Psychiatry & Neurology Neurology | DX: K59.00 Constipation, unspecified; Z63.6 Dependent relative needing care at home; G31.84 Mild cognitive impairment of uncertain or unknown etiology | CPT/HCPCS: 99214 ==

== ENCOUNTER 2025-01-15 01:35 | Outpatient (RCR) | payer MEDICARE, SELFPAY ==
[2024-12-18] MEDS: Normal Saline Flush 10 ML SYR IVP (12:52)
[2024-12-18 12:53] LABS: Absolute Basophil Count 0.09 10^3/uL (0.0-0.2); Absolute Eosinophil Count 0.85 10^3/uL (0.0-0.7); Absolute Lymphocyte Count 1.57 10^3/uL (1.2-3.4); Absolute Monocyte Count 0.92 10^3/uL (0.1-0.8); Basophils % 0.7 %; Eosinophils % 6.9 %; HCT 37.1 % (40.0-50.0); Immature Grans % 0.8 %; Lymphocytes % 12.8 %; MCH 28.4 pg (27.0-33.0); MCHC 32.3 % (32.0-36.0); MCV 88 fL (80-95); MPV 8.7 fL (8.0-11.0); Monocytes % 7.5 %; Neutrophils % 71.3 %; Platelet Count 244 10^3/uL (130-400); RBC 4.23 10^6/uL (4.36-5.78); RDW-SD 44.8 fL; WBC 12.27 10^3/uL (4.4-10.8)
[2024-12-18 12:54] LABS: Absolute Neutrophil Count 8.75 10^3/uL (1.2-6.7)
[2024-12-18 13:23] LABS: ALT 19 U/L (16-63); AST 18 U/L (15-37); Albumin 3.8 g/dL (3.4-5.0); Alkaline Phosphatase 120 U/L (46-116); Anion Gap 10.4 mmol/L (3-11); BUN 21 mg/dL (7-18); Bilirubin, Total 0.37 mg/dL (0.2-1.0); CO2 28.6 mmol/L (21.0-32.0); Calcium 10.1 mg/dL (8.5-10.1); Chloride 102 mmol/L (98-107); Estimated GFR 75.61 (mL/min/1.73m2); Glucose 131 mg/dL (74-106); Magnesium 1.7 mg/dL (1.8-2.4); Potassium 4.4 mmol/L (3.5-5.1); Sodium 141 mmol/L (136-145); TSH 5.67 uIU/mL (0.36-3.74)
[2025-01-15] MEDS: Normal Saline Flush 10 ML SYR IVP (13:01)
[2025-01-15 13:39] LABS: Abs Immature Grans 0.12 10^3/uL (0.0-0.06); Absolute Basophil Count 0.12 10^3/uL (0.0-0.2); Absolute Eosinophil Count 1.74 10^3/uL (0.0-0.7); Absolute Lymphocyte Count 1.58 10^3/uL (1.2-3.4); Absolute Monocyte Count 1.03 10^3/uL (0.1-0.8); Absolute Neutrophil Count 7.48 10^3/uL (1.2-6.7); Eosinophils % 14.4 %; HCT 35.8 % (40.0-50.0); HGB 11.6 g/dL (13.5-17.5); Lymphocytes % 13.1 %; MCH 28.2 pg (27.0-33.0); MCHC 32.4 % (32.0-36.0); MCV 87 fL (80-95); MPV 9.2 fL (8.0-11.0); Monocytes % 8.5 %; Platelet Count 251 10^3/uL (130-400); RBC 4.12 10^6/uL (4.36-5.78); RDW 14.2 % (11.8-14.1); RDW-SD 45.1 fL; WBC 12.07 10^3/uL (4.4-10.8)
[2025-01-15 14:03] LABS: ALT 16 U/L (16-63); AST 16 U/L (15-37); Albumin 3.7 g/dL (3.4-5.0); Alkaline Phosphatase 122 U/L (46-116); BUN 22 mg/dL (7-18); Bilirubin, Total 0.4 mg/dL (0.2-1.0); CREATININE 1.2 mg/dL (0.70-1.30); Calcium 9.7 mg/dL (8.5-10.1); Chloride 101 mmol/L (98-107); Estimated GFR 60.75 (mL/min/1.73m2); FREE T4 0.94 ng/dL (0.76-1.46); Glucose 188 mg/dL (74-106); Magnesium 1.5 mg/dL; Potassium 4.2 mmol/L (3.5-5.1); Sodium 141 mmol/L (136-145); TSH 3.21 uIU/mL (0.36-3.74); Total Protein 7.7 g/dL (6.4-8.2)
== END 2025-01-15 23:59 | disposition home or self-care (01) ==
LOC: INF 01:35
PROVIDERS: PCP Family Medicine; Visit Provider Internal Medicine Medical Oncology
DX: C34.12 Malignant neoplasm of upper lobe, left bronchus or lung (principal); Z79.899 Other long term (current) drug therapy
CPT/HCPCS: 36591; 80053; 83735; 84439; 84443; 85025

== ENCOUNTER 2025-02-07 02:07 | Outpatient (CLI) | payer MEDICARE, SELFPAY ==
--- NOTE | 2025-02-07 | DI.CT_ITS ---
Exam(s) CT CHEST W EXAM: CT CHEST W CLINICAL HISTORY: LOCALIZED NSCLC, S/P TREATMENT, CHEMO/RADIATON TO LT LUNG TECHNIQUE: Imaging Protocol: Axial computed tomography images with coronal and sagittal reformatted images were created and reviewed. Computer aided detection (CAD) was utilized. CONTRAST MATERIAL: Intravenous: Omnipaque 350Contrast volume:70 mL. COMPARISON: CT CT CHEST W from 03/15/[address] CHEST W from 08/22/[address] CHEST W from 10/16/2024 FINDINGS: Tracheobronchial tree: Patent where visualized. No evidence of bronchiectasis. Pulmonary parenchyma: There is a calcified granuloma in the right upper lobe. There are no new pulmo nary nodules, but all nodules previously visualized have shown interval increase in size. For exampl e the nodule adjacent to the right major fissure now measures 9 mm (series 8, image 85). This compar es to 6 mm on the prior examination. There has been interval progression of the consolidation of the left upper lobe with significant volume loss. There is narrowing of the airway to the lingula. Inc reased interstitial markings are again seen in the right upper lobe. Mediastinum and Ashwini: No dominant adenopathy or fluid collection. The esophagus is unremarkable. Thyroid gland: Small thyroid nodules are seen. No follow-up is recommended. Pleura: There is a small left pleural effusion. No right pleural effusion. Heart: The heart is not dilated. Coronary artery calcification is present. No pericardial effusion. Aorta: Thoracic aorta non-dilated. Atherosclerotic calcification is present. Pulmonary arteries: No pulmonary emboli are identified. There is compression of the pulmonary artery branches to the left upper lobe. This is likely secondary to the central mass. Upper abdomen: Unremarkable. Lymph nodes: Within normal limits. Bones: Within normal limits for the patient's age. Tubes, Catheters, and Lines: There is a right sided port. Soft tissues: Mild gynecomastia. IMPRESSION: Interval progression of the metastatic disease with an increase in size of all the previously noted p ulmonary nodules. There is also worsening atelectasis/consolidation of the left upper lobe with narr owing of the airway and pulmonary arteries to the left upper lobe. RADIATION DOSE DELIVERED: 167.5mGy.cm Total DLP DATA REPOSITORY: All CT scans at this facility are submitted to the National Radiology Data Registry (NRDR) Dose Index Registry (DIR) with the [employer] (ACR). RADIATION OPTIMIZATION: All CT scans at this facility use at least one of these dose optimization te chniques: automated exposure control; mA and/or kV adjustment per patient size (includes targeted exa ms where dose is matched to clinical indication); or iterative reconstruction.
[2025-02-07] MEDS: Normal Saline - Diluent 50 ML VIAL IJ (13:07)
[2025-02-07] MEDS: Omnipaque 350 MG/ML 500 ML BTL-Imaging package IJ (13:07)
== END 2025-02-07 02:27 ==
LOC: DI 02:07
PROVIDERS: PCP Family Medicine; Visit Provider Internal Medicine Medical Oncology
DX: C34.12 Malignant neoplasm of upper lobe, left bronchus or lung (principal)
CPT/HCPCS: 96523; 71260

== ENCOUNTER 2025-02-12 00:21 | Outpatient (RCR) | payer MEDICARE, SELFPAY ==
[2025-02-07] MEDS: Normal Saline Flush 10 ML SYR IVP (13:00)
[2025-02-12] MEDS: Normal Saline Flush 10 ML SYR IVP (10:50)
[2025-02-12 11:02] LABS: Abs Immature Grans 0.08 10^3/uL (0.0-0.06); Absolute Eosinophil Count 0.63 10^3/uL (0.0-0.7); Absolute Lymphocyte Count 1.44 10^3/uL (1.2-3.4); Absolute Monocyte Count 0.94 10^3/uL (0.1-0.8); Absolute Neutrophil Count 7.42 10^3/uL (1.2-6.7); Basophils % 0.9 %; Eosinophils % 5.9 %; HCT 37.5 % (40.0-50.0); HGB 11.9 g/dL (13.5-17.5); Immature Grans % 0.8 %; Lymphocytes % 13.6 %; MCH 28.1 pg (27.0-33.0); MCHC 31.7 % (32.0-36.0); MCV 88 fL (80-95); MPV 8.5 fL (8.0-11.0); Monocytes % 8.9 %; Neutrophils % 69.9 %; Platelet Count 239 10^3/uL (130-400); RBC 4.24 10^6/uL (4.36-5.78); RDW 13.8 % (11.8-14.1); RDW-SD 44.4 fL; WBC 10.61 10^3/uL (4.4-10.8)
[2025-02-12 11:26] LABS: ALT 14 U/L (16-63); AST 17 U/L (15-37); Albumin 3.8 g/dL (3.4-5.0); Alkaline Phosphatase 114 U/L (46-116); Anion Gap 11.8 mmol/L (3-11); BUN 15 mg/dL (7-18); Bilirubin, Total 0.4 mg/dL (0.2-1.0); CO2 27.2 mmol/L (21.0-32.0); Calcium 9.5 mg/dL (8.5-10.1); Chloride 102 mmol/L (98-107); Estimated GFR 75.61 (mL/min/1.73m2); FREE T4 0.89 ng/dL (0.76-1.46); Glucose 156 mg/dL (74-106); Magnesium 1.5 mg/dL (1.8-2.4); Potassium 4.2 mmol/L (3.5-5.1); Sodium 141 mmol/L (136-145); TSH 4.55 uIU/mL (0.36-3.74)
== END 2025-02-14 23:59 | disposition home or self-care (01) ==
LOC: INF 00:21
PROVIDERS: PCP Family Medicine; Visit Provider Internal Medicine Medical Oncology
DX: C34.12 Malignant neoplasm of upper lobe, left bronchus or lung (principal); Z79.899 Other long term (current) drug therapy; Z45.2 Encounter for adjustment and management of vascular access device
CPT/HCPCS: 36591; 80053; 96523; 83735; 84439; 84443; 85025

== ENCOUNTER 2025-02-15 19:01 | Outpatient (REF) | payer MEDICARE, SELFPAY ==
[2025-02-15 17:59] LABS: Bilirubin Negative (Negative); Blood Small (Negative); Clarity Clear (Clear); Glucose Negative (Negative); Ketones Trace mg/dL (Negative); Leukocyte Esterase Trace (Negative); Nitrite Negative (Negative); Urobilinogen 0.2 mg/dL (Up to 0.2); pH 5.5 (5-8)
[2025-02-15 18:20] LABS: Bacteria Moderate HPF (Negative); C & S Indicated? Yes; Casts Negative LPF (Negative); Crystals Negative HPF (Negative); Epithelial Cells Rare HPF (Negative); Mucus Negative (Negative); Other Cells Rare Transitional (Negative); WBC 20-50 HPF (0-5)
== END 2025-02-15 19:02 | disposition home or self-care (01) ==
LOC: LBN 19:01
PROVIDERS: PCP Family Medicine; Visit Provider Internal Medicine Medical Oncology
DX: R31.9 Hematuria, unspecified (principal)
CPT/HCPCS: 87077; 81003; 81015; 87086; 87186

== ENCOUNTER → 2025-03-21 11:27 | Outpatient (BNVA) | payer MEDICARE, SELFPAY | PROVIDERS: PCP Family Medicine; Visit Provider Psychiatry & Neurology Neurology | DX: G20.C Parkinsonism, unspecified (principal); K59.00 Constipation, unspecified; G31.84 Mild cognitive impairment of uncertain or unknown etiology; Z63.6 Dependent relative needing care at home; E11.42 Type 2 diabetes mellitus with diabetic polyneuropathy; E11.59 Type 2 diabetes mellitus with other circulatory complications; I10 Essential (primary) hypertension | CPT/HCPCS: 99214 ==

== ENCOUNTER 2025-04-04 13:00 | Outpatient (RCR) | payer MEDICARE, SELFPAY ==
[2025-03-26] MEDS: Normal Saline Flush 10 ML SYR IVP (12:34)
[2025-03-26 12:54] LABS: FREE T4 1.01 ng/dL (0.76-1.46); TSH 1.54 uIU/mL (0.36-3.74)
[2025-03-26 13:03] LABS: Amylase 40 U/L (25-115); Lipase 23 U/L (<78)
[2025-03-26 13:29] LABS: Abs Immature Grans 0.06 10^3/uL (0.0-0.06); Absolute Basophil Count 0.11 10^3/uL (0.0-0.2); Absolute Eosinophil Count 1.88 10^3/uL (0.0-0.7); Absolute Lymphocyte Count 1.43 10^3/uL (1.2-3.4); Absolute Monocyte Count 0.81 10^3/uL (0.1-0.8); Absolute Neutrophil Count 7.11 10^3/uL (1.2-6.7); Eosinophils % 16.5 %; HCT 36.3 % (40.0-50.0); HGB 11.6 g/dL (13.5-17.5); Immature Grans % 0.5 %; Lymphocytes % 12.5 %; MCV 88 fL (80-95); MPV 9.4 fL (8.0-11.0); Monocytes % 7.1 %; Neutrophils % 62.4 %; Platelet Count 220 10^3/uL (130-400); RBC 4.15 10^6/uL (4.36-5.78); RDW 14.1 % (11.8-14.1); RDW-SD 45.1 fL
[2025-03-26 13:39] LABS: ALT 21 U/L (16-63); AST 20 U/L (15-37); Albumin 3.3 g/dL (3.4-5.0); Alkaline Phosphatase 149 U/L (46-116); BUN 23 mg/dL (7-18); Bilirubin, Total 0.5 mg/dL (0.2-1.0); CREATININE 1.5 mg/dL (0.70-1.30); Calcium 9.3 mg/dL (8.5-10.1); Chloride 101 mmol/L (98-107); Estimated GFR 46.48 (mL/min/1.73m2); Glucose 199 mg/dL (74-106); Magnesium 1.5 mg/dL (1.8-2.4); Potassium 4.1 mmol/L (3.5-5.1); Sodium 137 mmol/L (136-145)
[2025-04-04] MEDS: Normal Saline Flush 10 ML SYR IVP (13:50)
[2025-04-04 13:52] LABS: ALT 25 U/L (16-63); AST 24 U/L (15-37); Albumin 2.9 g/dL (3.4-5.0); Alkaline Phosphatase 137 U/L (46-116); Anion Gap 7.9 mmol/L (3-11); BUN 19 mg/dL (7-18); Bilirubin, Total 0.4 mg/dL (0.2-1.0); CO2 29.1 mmol/L (21.0-32.0); CREATININE 1.2 mg/dL (0.70-1.30); Calcium 8.7 mg/dL (8.5-10.1); Chloride 101 mmol/L (98-107); Estimated GFR 60.75 (mL/min/1.73m2); Glucose 143 mg/dL (74-106); Potassium 4.2 mmol/L (3.5-5.1); Sodium 138 mmol/L (136-145); Total Protein 6.5 g/dL (6.4-8.2)
== END 2025-04-16 23:59 | disposition home or self-care (01) ==
LOC: INF 13:00
PROVIDERS: Nurse Practitioner Adult Health; PCP Family Medicine; Visit Provider Internal Medicine Medical Oncology
DX: C34.12 Malignant neoplasm of upper lobe, left bronchus or lung (principal); Z79.899 Other long term (current) drug therapy; Z45.2 Encounter for adjustment and management of vascular access device
CPT/HCPCS: 36591; 80053; 83690; 82150; 83735; 84439; 84443; 85025

== ENCOUNTER 2025-04-30 02:12 | Outpatient (CLI) | payer MEDICARE, SELFPAY ==
--- NOTE | 2025-04-30 | DI.CT_ITS ---
Exam(s) CT CHEST W EXAM: CT CHEST W CLINICAL HISTORY: Primary malignant neoplasm of bronchus of [place]IO, C34.12, restaging TECHNIQUE: Imaging Protocol: Axial computed tomography images with coronal and sagittal reformatted images were created and reviewed. Computer aided detection (CAD) was utilized. CONTRAST MATERIAL: Intravenous: Omnipaque 350Contrast volume:70 mL. COMPARISON: CT CT CHEST W from 10/16/[address] CHEST W from 02/07/2025 FINDINGS: Tracheobronchial tree: The scarring and volume loss in the left upper lobe appears stable. The nodule in the right lower lobe has shown decrease in size currently measuring 4 mm compared to 9 mm on the prior examination. No new pulmonary nodules are present. Pulmonary parenchyma: No new infiltrates are seen. Mediastinum and Ashwini: No dominant adenopathy or fluid collection. The esophagus is unremarkable. Thyroid gland: There are several small thyroid nodules (less than 5 mm). No follow-up is recommended. Pleura: No effusion or pneumothorax. Heart: The heart is not dilated. Coronary artery calcification is present. No pericardial effusion. Aorta: Thoracic aorta non-dilated. Atherosclerotic calcification is present. Pulmonary arteries: Due to the timing of the bolus, there is suboptimal opacification of the pulmonary arteries. No large central pulmonary embolism is present. Upper abdomen: Unremarkable. Lymph nodes: Within normal limits. Bones: Within normal limits for the patient's age. Tubes, Catheters, and Lines: There is a right port in place. Soft tissues: Mild gynecomastia bilaterally. IMPRESSION: 1. No evidence of progression of disease. 2. Stable consolidation/mass in the left upper lobe. 3. Interval decrease in size of the right lower lobe pulmonary nodule. No new pulmonary nodules are present. RADIATION DOSE DELIVERED: 145.94mGy.cm Total DLP DATA REPOSITORY: All CT scans at this facility are submitted to the National Radiology Data Registry (NRDR) Dose Index Registry (DIR) with the [employer] (ACR). RADIATION OPTIMIZATION: All CT scans at this facility use at least one of these dose optimization techniques: automated exposure control; mA and/or kV adjustment per patient size (includes targeted exams where dose is matched to clinical indication); or iterative reconstruction.
[2025-04-30] MEDS: Normal Saline - Diluent 50 ML VIAL IJ (13:30)
[2025-04-30] MEDS: Omnipaque 350 MG/ML 500 ML BTL-Imaging package 70 ML IJ (13:31)
== END 2025-04-30 02:32 ==
LOC: DI 02:13
PROVIDERS: PCP Family Medicine; Visit Provider Nurse Practitioner Adult Health
DX: C34.12 Malignant neoplasm of upper lobe, left bronchus or lung (principal)
CPT/HCPCS: 96523; 71260

== ENCOUNTER 2025-04-30 02:43 | Outpatient (RCR) | payer MEDICARE, SELFPAY ==
[2025-04-30] MEDS: Normal Saline Flush 10 ML SYR IVP (13:00)
== END 2025-05-17 23:59 | disposition home or self-care (01) ==
LOC: INF 02:43
PROVIDERS: PCP Family Medicine; Visit Provider Internal Medicine Medical Oncology
DX: C34.12 Malignant neoplasm of upper lobe, left bronchus or lung (principal); C78.01 Secondary malignant neoplasm of right lung; C78.02 Secondary malignant neoplasm of left lung; Z79.899 Other long term (current) drug therapy; Z45.2 Encounter for adjustment and management of vascular access device
CPT/HCPCS: 96523

== ENCOUNTER 2025-05-08 12:23 | Outpatient (RCR) | payer MEDICARE, SELFPAY ==
[2025-05-08] MEDS: Normal Saline Flush 10 ML SYR IVP (12:37)
[2025-05-08 12:54] LABS: Abs Immature Grans 0.06 10^3/uL (0.0-0.06); HCT 35.3 % (40.0-50.0); HGB 11.4 g/dL (13.5-17.5); Immature Grans % 0.6 %; MCH 28.1 pg (27.0-33.0); MCHC 32.3 % (32.0-36.0); MCV 87 fL (80-95); MPV 9.2 fL (8.0-11.0); Platelet Count 241 10^3/uL (130-400); RBC 4.06 10^6/uL (4.36-5.78); RDW 14.7 % (11.8-14.1); RDW-SD 47.2 fL; WBC 9.89 10^3/uL (4.4-10.8)
[2025-05-08 13:14] LABS: ALT 11 U/L (16-63); AST 22 U/L (15-37); Albumin 2.8 g/dL (3.4-5.0); Alkaline Phosphatase 119 U/L (46-116); Anion Gap 9.1 mmol/L (3-11); BUN 12 mg/dL (7-18); Bilirubin, Total 0.6 mg/dL (0.2-1.0); CO2 26.9 mmol/L (21.0-32.0); Calcium 8.6 mg/dL (8.5-10.1); Chloride 102 mmol/L (98-107); Estimated GFR 60.38 (mL/min/1.73m2); Glucose 121 mg/dL (74-106); Magnesium 1.6 mg/dL (1.8-2.4); Potassium 4.4 mmol/L (3.5-5.1); Sodium 138 mmol/L (136-145); TSH 2.48 uIU/mL (0.36-3.74); Total Protein 6.3 g/dL (6.4-8.2)
== END 2025-05-17 23:59 | disposition home or self-care (01) ==
LOC: INF 12:23
PROVIDERS: PCP Family Medicine; Visit Provider Internal Medicine Medical Oncology
DX: C34.12 Malignant neoplasm of upper lobe, left bronchus or lung (principal); Z79.899 Other long term (current) drug therapy; Z45.2 Encounter for adjustment and management of vascular access device
CPT/HCPCS: 36591; 80053; 83735; 84439; 84443; 85025

== ENCOUNTER 2025-06-04 03:46 | Outpatient (RCR) | payer MEDICARE, SELFPAY ==
[2025-06-04] MEDS: Normal Saline Flush 10 ML SYR IVP (10:50)
[2025-06-04 11:09] LABS: Abs Immature Grans 0.06 10^3/uL (0.0-0.06); HCT 38.0 % (40.0-50.0); HGB 12.3 g/dL (13.5-17.5); Immature Grans % 0.6 %; MCH 28.7 pg (27.0-33.0); MCHC 32.4 % (32.0-36.0); MCV 89 fL (80-95); MPV 9.5 fL (8.0-11.0); Platelet Count 246 10^3/uL (130-400); RBC 4.29 10^6/uL (4.36-5.78); RDW 14.8 % (11.8-14.1); RDW-SD 47.4 fL; WBC 10.79 10^3/uL (4.4-10.8)
[2025-06-04 11:22] LABS: Amylase 63 U/L (25-115); Lipase 62 U/L (<78)
[2025-06-04 11:37] LABS: ALT 10 U/L (16-63); AST 18 U/L (15-37); Albumin 2.8 g/dL (3.4-5.0); Alkaline Phosphatase 127 U/L (46-116); Anion Gap 9.5 mmol/L (3-11); BUN 19 mg/dL (7-18); Bilirubin, Total 0.5 mg/dL (0.2-1.0); CO2 27.5 mmol/L (21.0-32.0); Calcium 8.7 mg/dL (8.5-10.1); Chloride 103 mmol/L (98-107); Estimated GFR 42.75 (mL/min/1.73m2); Glucose 154 mg/dL (74-106); Magnesium 1.7 mg/dL (1.8-2.4); Potassium 4.3 mmol/L (3.5-5.1); Sodium 140 mmol/L (136-145); Total Protein 6.4 g/dL (6.4-8.2)
== END 2025-06-17 23:59 | disposition home or self-care (01) ==
LOC: INF 03:46
PROVIDERS: Nurse Practitioner Adult Health; PCP Family Medicine; Visit Provider Internal Medicine Medical Oncology
DX: C34.12 Malignant neoplasm of upper lobe, left bronchus or lung (principal); Z45.2 Encounter for adjustment and management of vascular access device
CPT/HCPCS: 36591; 80053; 83690; 82150; 83735; 85025

== ENCOUNTER 2025-07-17 02:35 | Outpatient (RCR) | payer MEDICARE, SELFPAY ==
[2025-07-02 13:17] LABS: Abs Immature Grans 0.04 10^3/uL (0.0-0.06); HCT 36.5 % (40.0-50.0); HGB 11.6 g/dL (13.5-17.5); Immature Grans % 0.4 %; MCH 28.9 pg (27.0-33.0); MCHC 31.8 % (32.0-36.0); MCV 91 fL (80-95); MPV 9.2 fL (8.0-11.0); Platelet Count 204 10^3/uL (130-400); RBC 4.02 10^6/uL (4.36-5.78); RDW 14.6 % (11.8-14.1); RDW-SD 48.9 fL; WBC 10.82 10^3/uL (4.4-10.8)
[2025-07-02] MEDS: Normal Saline Flush 10 ML SYR IVP (13:47)
[2025-07-02 13:48] LABS: ALT 11 U/L (16-63); AST 16 U/L (15-37); Albumin 2.7 g/dL (3.4-5.0); Alkaline Phosphatase 112 U/L (46-116); Anion Gap 7.4 mmol/L (3-11); BUN 17 mg/dL (7-18); Bilirubin, Total 0.5 mg/dL (0.2-1.0); CO2 28.6 mmol/L (21.0-32.0); Calcium 8.6 mg/dL (8.5-10.1); Chloride 103 mmol/L (98-107); Estimated GFR 50.18 (mL/min/1.73m2); Glucose 181 mg/dL (74-106); Magnesium 1.4 mg/dL (1.8-2.4); Potassium 4.5 mmol/L (3.5-5.1); Sodium 139 mmol/L (136-145); TSH 1.25 uIU/mL (0.36-3.74); Total Protein 6.0 g/dL (6.4-8.2)
[2025-07-02 14:01] LABS: Amylase 32 U/L (25-115); Lipase 20 U/L (<78)
[2025-07-16 11:56] LABS: Abs Immature Grans 0.04 10^3/uL (0.0-0.06); HCT 35.2 % (40.0-50.0); HGB 11.3 g/dL (13.5-17.5); Immature Grans % 0.4 %; MCH 28.8 pg (27.0-33.0); MCHC 32.1 % (32.0-36.0); MCV 90 fL (80-95); MPV 8.9 fL (8.0-11.0); Platelet Count 242 10^3/uL (130-400); RBC 3.93 10^6/uL (4.36-5.78); RDW 14.1 % (11.8-14.1); RDW-SD 45.7 fL; WBC 9.78 10^3/uL (4.4-10.8)
[2025-07-16] MEDS: Normal Saline Flush 10 ML SYR IVP (11:58)
[2025-07-16 12:06] LABS: Amylase 35 U/L (25-115); Lipase 18 U/L (<78)
[2025-07-16 12:16] LABS: ALT 7 U/L (16-63); AST 17 U/L (15-37); Albumin 2.6 g/dL (3.4-5.0); Alkaline Phosphatase 123 U/L (46-116); Anion Gap 6.8 mmol/L (3-11); BUN 13 mg/dL (7-18); Bilirubin, Total 0.5 mg/dL (0.2-1.0); CO2 29.2 mmol/L (21.0-32.0); Calcium 9.0 mg/dL (8.5-10.1); Chloride 103 mmol/L (98-107); Estimated GFR 54.85 (mL/min/1.73m2); Glucose 149 mg/dL (74-106); Magnesium 1.9 mg/dL (1.8-2.4); Potassium 4.2 mmol/L (3.5-5.1); Sodium 139 mmol/L (136-145); TSH 1.46 uIU/mL (0.36-3.74); Total Protein 6.3 g/dL (6.4-8.2)
== END 2025-07-17 23:59 | disposition home or self-care (01) ==
LOC: INF 02:35
PROVIDERS: Nurse Practitioner Adult Health; PCP Family Medicine; Visit Provider Internal Medicine Medical Oncology
DX: C34.32 Malignant neoplasm of lower lobe, left bronchus or lung (principal); C34.12 Malignant neoplasm of upper lobe, left bronchus or lung; C78.02 Secondary malignant neoplasm of left lung; Z79.899 Other long term (current) drug therapy; Z45.2 Encounter for adjustment and management of vascular access device
CPT/HCPCS: 36591; 80053; 83690; 82150; 83735; 84439; 84443; 85025

== ENCOUNTER 2025-07-23 02:36 | Outpatient (CLI) | payer MEDICARE, SELFPAY ==
--- NOTE | 2025-07-23 | DI.CT_ITS ---
Exam(s) CT CHEST W EXAM: CT CHEST W CLINICAL HISTORY: METASTATIC LT LUNG CANCER C34.12 B/L PULM METS TARGETED THERAPY RESATGING. TECHNIQUE: Multi planar reconstructions were performed. CONTRAST MATERIAL: Omnipaque 350; 70 cc COMPARISON: CT CT CHEST W from 04/30/2025 FINDINGS: CHEST: LUNGS: The size and appearance of the previously described left upper lobe mass infiltrate is unchanged from 04/30/2025. There are no new significant focal left lung findings/nodules nor pleural effusion. In the opposite-right lung there is an unchanged small 2-3 millimeter upper lobe sub apical upper lobe nodule. A benign calcified granuloma is unchanged in the right upper lobe. Peripherally located right lower lobe nodule is less evident on today's study. Smaller subpleural 2 millimeter nodule in the right lower lobe is unchanged. No right lung infiltrate. There are no pleural effusions. MEDIASTINUM: There is no hilar adenopathy on the right side. No subcarinal adenopathy. The left upper lobe mass is contiguous with the left hilum, similar to previous. There does not appear to be increasing adenopathy in the left hilum nor in the aortopulmonic window. CARDIAC: Heart size is normal. There is no pericardial effusion.Caliber of the thoracic aorta is within normal limits. VISUALIZED UPPER ABDOMEN:There are no significant adrenal masses. No ascites. OSSEOUS: No significant osseous lesions.No fractures.. OTHER: Distal tip of the Port-A-Cath is at SVC-RA junction IMPRESSION: 1. No evidence of disease progression. The previously described consolidation/mass in the left upper lobe is unchanged. 2. Small unchanged 2-3 mm right upper lobe nodule and unchanged 2 mm nodule in the right lower lobe. No new lung nodules nor new pleural effusions. No new adenopathy. RADIATION DOSE DELIVERED: 107.07mGy.cm Total DLP DATA REPOSITORY: All CT scans at this facility are submitted to the National Radiology Data Registry (NRDR) Dose Index Registry (DIR) with the [employer] (ACR). RADIATION OPTIMIZATION: All CT scans at this facility use at least one of these dose optimization techniques: automated exposure control; mA and/or kV adjustment per patient size (includes targeted exams where dose is matched to clinical indication); or iterative reconstruction.
[2025-07-23] MEDS: Omnipaque 350 MG/ML 100 ML BTL IJ (14:14)
[2025-07-23] MEDS: Normal Saline - Diluent 50 ML VIAL IJ (14:15)
== END 2025-07-23 02:56 ==
PROVIDERS: PCP Family Medicine; Visit Provider Internal Medicine Medical Oncology
DX: C34.12 Malignant neoplasm of upper lobe, left bronchus or lung (principal)
CPT/HCPCS: 96523; 71260; J3490

== ENCOUNTER 2025-08-14 01:54 | Outpatient (RCR) | payer MEDICARE, SELFPAY ==
[2025-07-23] MEDS: Normal Saline Flush 10 ML SYR IVP (14:08)
[2025-07-31 13:30] LABS: Abs Immature Grans 0.05 10^3/uL (0.0-0.06); HCT 36.9 % (40.0-50.0); HGB 12.1 g/dL (13.5-17.5); Immature Grans % 0.5 %; MCH 29.8 pg (27.0-33.0); MCHC 32.8 % (32.0-36.0); MCV 91 fL (80-95); MPV 9.1 fL (8.0-11.0); Platelet Count 239 10^3/uL (130-400); RBC 4.06 10^6/uL (4.36-5.78); RDW 13.8 % (11.8-14.1); RDW-SD 46.1 fL; WBC 10.74 10^3/uL (4.4-10.8)
[2025-07-31] MEDS: Normal Saline Flush 10 ML SYR IVP (13:32)
[2025-07-31 14:10] LABS: Amylase 27 U/L (25-115); Lipase 15 U/L (<78)
[2025-07-31 14:23] LABS: ALT 10 U/L (16-63); AST 23 U/L (15-37); Albumin 2.7 g/dL (3.4-5.0); Alkaline Phosphatase 124 U/L (46-116); Anion Gap 12.2 mmol/L (3-11); BUN 18 mg/dL (7-18); Bilirubin, Total 0.5 mg/dL (0.2-1.0); CO2 25.8 mmol/L (21.0-32.0); Calcium 8.6 mg/dL (8.5-10.1); Chloride 101 mmol/L (98-107); Glucose 147 mg/dL (74-106); Magnesium 1.7 mg/dL (1.8-2.4); Potassium 4.0 mmol/L (3.5-5.1); Sodium 139 mmol/L (136-145); TSH 3.63 uIU/mL (0.36-3.74); Total Protein 6.1 g/dL (6.4-8.2)
[2025-08-14] MEDS: Normal Saline Flush 10 ML SYR IVP (12:09)
[2025-08-14 12:25] LABS: Abs Immature Grans 0.06 10^3/uL (0.0-0.06); HCT 36.1 % (40.0-50.0); HGB 11.4 g/dL (13.5-17.5); Immature Grans % 0.5 %; MCH 28.4 pg (27.0-33.0); MCHC 31.6 % (32.0-36.0); MCV 90 fL (80-95); MPV 8.7 fL (8.0-11.0); Platelet Count 249 10^3/uL (130-400); RBC 4.02 10^6/uL (4.36-5.78); RDW 13.7 % (11.8-14.1); RDW-SD 45.4 fL; WBC 11.13 10^3/uL (4.4-10.8)
[2025-08-14 12:40] LABS: Amylase 44 U/L (25-115); Lipase 36 U/L (<78)
[2025-08-14 12:53] LABS: ALT 12 U/L (16-63); AST 21 U/L (15-37); Albumin 3.2 g/dL (3.4-5.0); Alkaline Phosphatase 104 U/L (46-116); Anion Gap 9.4 mmol/L (3-11); BUN 14 mg/dL (7-18); Bilirubin, Total 0.4 mg/dL (0.2-1.0); CO2 28.6 mmol/L (21.0-32.0); Calcium 9.3 mg/dL (8.5-10.1); Chloride 101 mmol/L (98-107); Glucose 194 mg/dL (74-106); Magnesium 1.7 mg/dL (1.8-2.4); Potassium 4.1 mmol/L (3.5-5.1); Sodium 139 mmol/L (136-145); TSH 2.71 uIU/mL (0.36-3.74); Total Protein 7.3 g/dL (6.4-8.2)
== END 2025-08-17 23:59 | disposition home or self-care (01) ==
LOC: INF 01:54
PROVIDERS: Nurse Practitioner Adult Health; PCP Family Medicine; Visit Provider Internal Medicine Medical Oncology
DX: C34.12 Malignant neoplasm of upper lobe, left bronchus or lung (principal); Z45.2 Encounter for adjustment and management of vascular access device
CPT/HCPCS: 36591; 80053; 83690; 96523; 82150; 83735; 84439; 84443; 85025

== ENCOUNTER 2025-08-17 11:47 | Outpatient (REF) | payer MEDICARE, SELFPAY ==
[2025-08-17 16:52] LABS: Glucose Negative (Negative)
[2025-08-17 17:39] LABS: Microalb ug/mg Crea 6.7 ug/mg Cr
== END 2025-08-17 11:48 | disposition home or self-care (01) ==
LOC: LBN 11:47
PROVIDERS: PCP Family Medicine; Visit Provider Family Medicine
DX: E11.9 Type 2 diabetes mellitus without complications (principal); E11.40 Type 2 diabetes mellitus with diabetic neuropathy, unspecified; R53.1 Weakness; R41.82 Altered mental status, unspecified
CPT/HCPCS: 81003; 82043; 82570

== ENCOUNTER 2025-09-05 03:32 | Outpatient (CLI) | payer MEDICARE, SELFPAY ==
[2025-09-05 16:24] LABS: Hemoglobin A1C 6.2 % (<5.7)
== END 2025-09-05 03:33 | disposition home or self-care (01) ==
LOC: LOS 03:33
PROVIDERS: PCP Family Medicine; Visit Provider Family Medicine
DX: E11.9 Type 2 diabetes mellitus without complications (principal); E11.40 Type 2 diabetes mellitus with diabetic neuropathy, unspecified
CPT/HCPCS: 36415; 83036

== ENCOUNTER 2025-09-25 00:55 | Outpatient (RCR) | payer MEDICARE, SELFPAY ==
[2025-09-25 10:53] LABS: Abs Immature Grans 0.06 10^3/uL (0.0-0.06); HCT 36.9 % (40.0-50.0); HGB 11.8 g/dL (13.5-17.5); Immature Grans % 0.6 %; MCH 28.4 pg (27.0-33.0); MCHC 32.0 % (32.0-36.0); MCV 89 fL (80-95); MPV 9.2 fL (8.0-11.0); Platelet Count 213 10^3/uL (130-400); RBC 4.15 10^6/uL (4.36-5.78); RDW 13.2 % (11.8-14.1); RDW-SD 42.9 fL; WBC 10.34 10^3/uL (4.4-10.8)
[2025-09-25 11:15] LABS: Lipase 29 U/L (<53); Magnesium 1.6 mg/dL (1.6-2.6)
[2025-09-25 11:16] LABS: Amylase 58 U/L (30-118)
[2025-09-25 11:17] LABS: TSH 1.18 uIU/mL (0.55-4.78)
[2025-09-25] MEDS: Normal Saline Flush 10 ML SYR IVP (11:19)
[2025-09-25 11:30] LABS: ALT < 7 U/L (10-49); AST 14 U/L (<34); Albumin 3.6 g/dL (3.2-5.0); Alkaline Phosphatase 93 U/L (46-116); Anion Gap 9.3 mmol/L (3-11); BUN 22 mg/dL (9-23); Bilirubin, Total 0.5 mg/dL (0.2-1.2); CO2 27.7 mmol/L (20.0-31.0); Calcium 9.0 mg/dL (8.3-10.6); Chloride 102 mmol/L (98-107); Glucose 146 mg/dL (74-106); Potassium 4.5 mmol/L (3.5-5.1); Sodium 139 mmol/L (136-145); Total Protein 6.3 g/dL (5.7-8.2)
== END 2025-10-17 23:59 | disposition home or self-care (01) ==
LOC: INF 00:55
PROVIDERS: Nurse Practitioner Adult Health; PCP Family Medicine; Visit Provider Internal Medicine Medical Oncology
DX: C34.12 Malignant neoplasm of upper lobe, left bronchus or lung (principal); C78.01 Secondary malignant neoplasm of right lung; C78.02 Secondary malignant neoplasm of left lung; Z79.899 Other long term (current) drug therapy; Z45.2 Encounter for adjustment and management of vascular access device
CPT/HCPCS: 36591; 80053; 83690; 82150; 83735; 84439; 84443; 85025